=== PATIENT | male | born 1965 | race Caucasian/White ===

== ENCOUNTER 2016-10-11 20:00 | Emergency (ER) | payer OTHER ==
--- NOTE | 2016-10-11 21:54 | ER Document Report ---
ED Medical Screen (RME) - General Chief Complaint: Urinary Problem Stated Complaint: POSSIBLE KIDNEY INFECTION Time Seen by Provider: 10/11/16 21:52 Mode of Arrival: Ambulatory Information source: Patient Notes: 51-year-old male presents to ED for follow-up from [place]. He states he got a message on his telephone that he was to come [facility] to be seen but he did not get the message until he got the third message was informed to come to the ED to be evaluated for a kidney infection. He states he has no symptoms no pain no discomfort no blood in his urine but he came to the emergency room because the mother states that for him to come directly to the emergency room to be checked out. Patient is on Pradaxa. I have greeted and performed a rapid initial assessment of this patient. A comprehensive ED assessment and evaluation of the patient, analysis of test results and completion of medical decision making process will be conducted by an additional ED providers. TRAVEL OUTSIDE OF THE [place] IN LAST 30 DAYS: No - Related Data Allergies/Adverse Reactions: Penicillins Allergy (Verified 06/20/15 11:26) Past Medical History - Past Medical History Cardiac Medical History: Reports: Hx Atrial Fibrillation, Hx Congestive Heart Failure, Hx Hypercholesterolemia, Hx Hypertension Renal/ Medical History: Denies: Hx Peritoneal Dialysis Past Surgical History: Reports: Hx Cardiac Surgery - Immunizations Hx Diphtheria, Pertussis, Tetanus Vaccination: Yes Physical Exam - Vital signs Vitals: Temp Pulse Resp BP Pulse Ox 98.1 F 128 H 18 125/92 H 98 10/11/16 20:09 10/11/16 20:09 10/11/16 20:09 10/11/16 20:09 10/11/16 20:09 Course - Vital Signs Vital signs: Temp Pulse Resp BP Pulse Ox 98.1 F 128 H 18 125/92 H 98 10/11/16 20:09 10/11/16 20:09 10/11/16 20:09 10/11/16 20:09 10/11/16 20:09
[2016-10-11 22:11] LABS: APPEARANCE,URINE CLEAR; BILIRUBIN,URINE NEGATIVE (NEGATIVE); GLUCOSE, URINE NEGATIVE (NEGATIVE); KETONES,URINE NEGATIVE (NEGATIVE); LEUKOCYTE ESTERASE,URINE NEGATIVE (NEGATIVE); NITRITE,URINE NEGATIVE (NEGATIVE); PROTEIN,URINE NEGATIVE (NEGATIVE); URINE SPECIFIC GRAVITY 1.003; UROBILINOGEN,URINE NEGATIVE mg/dL (<2.0)
[2016-10-11 22:51] LABS: ABSOLUTE BASOPHILS # (AUTO) 0.1 10^3/uL (0.0-0.2); ABSOLUTE EOSINOPHILS # (AUTO) 0.4 10^3/uL (0.0-0.6); ABSOLUTE LYMPHOCYTES (AUTO) 2.2 10^3/uL (0.5-4.7); ABSOLUTE MONOCYTES (AUTO) 1.1 10^3/uL (0.1-1.4); EOSINOPHILS % (AUTO) 4.1 % (0-6); HEMATOCRIT 48.4 % (37.9-51.0); HEMOGLOBIN 15.8 g/dL (13.5-17.0); LYMPHOCYTES % (AUTO) 22.6 % (13-45); MEAN CORPUSCULAR HEMOGLOBIN 31.6 pg (27.0-33.4); MEAN CORPUSCULAR HGB CONC 32.6 g/dL (32.0-36.0); MEAN CORPUSCULAR VOLUME 97 fl (80-97); MONOCYTES % (AUTO) 10.8 % (3-13); RED BLOOD COUNT 4.99 10^6/uL (4.35-5.55); SEGMENTED NEUTROPHILS % (AUTO) 61.5 % (42-78); WHITE BLOOD COUNT 9.7 10^3/uL (4.0-10.5)
[2016-10-11 23:10] LABS: ALANINE AMINOTRANSFERASE 38 U/L (21-72); ALBUMIN 4.9 g/dL (3.5-5.0); ALKALINE PHOSPHATASE 71 U/L (38-126); ANION GAP 15 (5-19); ASPARTATE AMINO TRANSFERASE 25 U/L (17-59); BILIRUBIN,DIRECT 0.4 mg/dL (0.0-0.4); BILIRUBIN,TOTAL 0.7 mg/dL (0.2-1.3); BLOOD UREA NITROGEN 41 mg/dL (7-20); CALCIUM 9.8 mg/dL (8.4-10.2); CARBON DIOXIDE 23 mmol/L (22-30); CHLORIDE 103 mmol/L (98-107); CREATININE RESULT 1.26 mg/dL (0.52-1.25); GLUCOSE 60 mg/dL (75-110); POTASSIUM 5.3 mmol/L (3.6-5.0); SODIUM 141.4 mmol/L (137-145); TOTAL PROTEIN 8.1 g/dL (6.3-8.2)
[2016-10-12 01:46] VITALS: BP 137/98
--- NOTE | 2016-10-12 01:52 | ER Document Report ---
ED General - General Chief Complaint: Urinary Problem Stated Complaint: POSSIBLE KIDNEY INFECTION Time Seen by Provider: 10/11/16 21:52 Mode of Arrival: Ambulatory Information source: Patient Notes: 51-year-old male presents to ED [facility]. He states he got messages on his phone to come to the [place] yesterday but he did not get a mental doctor message with said that he was going to nearest ED to be evaluated for kidney infection. He denies any pain any shortness of breath any discomfort any blood in his urine or stools that he came to the emergency room because the doctor said that he was supposed to. Patient has a history of atrial fib CHF high cholesterol and high blood pressure and is on metoprolol tartrate and lisinopril and Pradaxa. TRAVEL OUTSIDE OF THE [place] IN LAST 30 DAYS: No - HPI Onset: This evening Quality of pain: No pain Severity: None Pain Level: Denies Associated symptoms: None Exacerbated by: Denies Relieved by: Denies Similar symptoms previously: No Recently seen / treated by doctor: Yes - Related Data Allergies/Adverse Reactions: Penicillins Allergy (Verified 06/20/15 11:26) Past Medical History - General Information source: Patient - Social History Smoking Status: Current Every Day Smoker Cigarette use (# per day): Yes - Half a pack a day Chew tobacco use (# tins/day): No Smoking Education Provided: Yes - Less than 1 minute Frequency of alcohol use: Heavy - 1-2 beer a day Drug Abuse: None Occupation: [employer] Lives with: Spouse/Significant other Family History: CAD, Hyperlipidemia, Hypertension, Thyroid Disfunction Patient has suicidal ideation: No Patient has homicidal ideation: No - Past Medical History Cardiac Medical History: Reports: Hx Atrial Fibrillation, Hx Congestive Heart Failure, Hx Hypercholesterolemia, Hx Hypertension Pulmonary Medical History: Reports: None EENT Medical History: Reports: None Neurological Medical History: Reports: None Endocrine Medical History: Reports: None Renal/ Medical History: Reports: None Malignancy Medical History: Reports None GI Medical History: Reports: None Musculoskeltal Medical History: Reports None Skin Medical History: Reports None Psychiatric Medical History: Reports: None Traumatic Medical History: Reports: None Infectious Medical History: Reports: None Past Surgical History: Reports: Hx Cardiac Surgery - Immunizations Immunizations up to date: Yes Hx Diphtheria, Pertussis, Tetanus Vaccination: Yes Review of Systems - Review of Systems Constitutional: No symptoms reported EENT: No symptoms reported Cardiovascular: No symptoms reported Respiratory: No symptoms reported Gastrointestinal: No symptoms reported Genitourinary: No symptoms reported Male Genitourinary: No symptoms reported Musculoskeletal: No symptoms reported Skin: No symptoms reported Hematologic/Lymphatic: No symptoms reported Neurological/Psychological: No symptoms reported Physical Exam - Vital signs Vitals: Temp Pulse Resp BP Pulse Ox 98.1 F 128 H 18 125/92 H 98 10/11/16 20:09 10/11/16 20:09 10/11/16 20:09 10/11/16 20:09 10/11/16 20:09 Interpretation: Normal, Hypertensive - has not taken his metoprolol or diltiazem this afternoon, Tachycardic - 135 but he has not taken his metoprolol dental exam or Pradaxa this afternoon - General General appearance: Appears well, Alert - HEENT Head: Normocephalic, Atraumatic Eyes: Normal Pupils: PERRL - Respiratory Respiratory status: No respiratory distress Chest status: Nontender Breath sounds: Normal Chest palpation: Normal - Cardiovascular Rhythm: Regular Heart sounds: Normal auscultation Murmur: No - Abdominal Inspection: Normal Distension: No distension Bowel sounds: Normal Tenderness: Nontender Organomegaly: No organomegaly - Back Back: Normal, Nontender - Extremities General upper extremity: Normal inspection, Nontender, Normal color, Normal ROM , Normal temperature General lower extremity: Normal inspection, Nontender, Normal color, Normal ROM , Normal temperature, Normal weight bearing. No: Joyce's sign - Neurological Neuro grossly intact: Yes Cognition: Normal Orientation: AAOx4 Riz[place]ana Coma Scale Eye Opening: Spontaneous Gilbert Coma Scale Verbal: Oriented Gilbert Coma Scale Motor: Obeys Commands Gilbert Coma Scale Total: 15 Speech: Normal Motor strength normal: LUE, RUE, LLE, RLE Sensory: Normal - Psychological Associated symptoms: Normal affect, Normal mood - Skin Skin Temperature: Warm Skin Moisture: Dry Skin Color: Normal Course - Re-evaluation Re-evalutation: 10/12/16 01:50 Patient has elevated BUN and creatinine as well as blood pressure and pulse he has not taken his metoprolol develop or Pradaxa this afternoon. He states he always has elevated pulse is much is 138-140 if he does not take his medications on time and he did not take his diltiazem at noon, 6 PM, or at midnight he is scheduled to take that every [address] De La Cruz for the assessment and the lab work and vital signs. He stated his longest the pulse was regular which it is and he has had no bleeding from his urine or his stool and he can be discharged and follow-up with [facility] doctor in the morning. A copy of the dresser given to him to follow-up with his [facility] doctor. - Vital Signs Vital signs: Temp Pulse Resp BP Pulse Ox 98.1 F 135 H 18 137/98 H 98 10/11/16 20:09 10/12/16 01:40 10/12/16 01:40 10/12/16 01:40 10/12/16 01:40 - Laboratory Result Diagrams: 10/11/16 22:00 10/11/16 22:00 Laboratory results interpreted by me: 10/11/16 22:00 Potassium 5.3 H BUN 41 H Creatinine 1.26 H Glucose 60 L Discharge - Discharge Clinical Impression: Renal insufficiency, Tachycardia HTN (hypertension) Qualifiers: Hypertension type: unspecified Qualified Code(s): I10 - Essential (primary) hypertension Condition: Stable Disposition: HOME, SELF-CARE Additional Instructions: HIGH BLOOD PRESSURE REQUIRING TREATMENT: Your blood pressure is high. This is called "hypertension." Today's reading was __137/92 (normal is less than 140/90). Your history and exam suggest that this is not a temporary problem. You need treatment of your blood pressure. If left untreated, high blood pressure greatly increases your risk of heart attack and stroke. Please don't ignore this problem. If you have blood pressure medicine but aren't using it regularly, start taking it again. Some simple things you can do to help are: Get some aerobic exercise for at least 20 minutes on a daily basis. (See your doctor before beginning any new exercise program.) Eat a low-fat diet. Lose excess weight. Avoid salty foods and avoid adding salt to any of the foods you eat. Avoid diet pills, decongestants, "energizing" herbs, and other medicines that elevate blood pressure. There are many different medicines that treat blood pressure. If your medication causes unpleasant side effects, call your doctor. There are others you can try. Treating hypertension is a life-long investment in your health. You took your medication before leaving please do not take and again the night You have renal insufficiency with a BUN and creatinine is elevated this needs to be followed up with the [place] tomorrow. Your blood pressure and pulse were also elevated as you did not take any medicine please take these as ordered. Please be sure to drink plenty of fluids and follow-up with the doctor tomorrow. FOLLOW-UP CARE: If you have been referred to a physician for follow-up care, call the physician s office for an appointment as you were instructed or within the next two days. If you experience worsening or a significant change in your symptoms, notify the physician immediately or return to the Emergency Department at any time for re-evaluation. Forms: Elevated Blood Pressure, Smoking Cessation Education, Return to Work
== END 2016-10-12 02:02 | disposition home or self-care (01) ==
LOC: ER 20:00
DX: N28.9 Disorder of kidney and ureter, unspecified (principal); R00.0 Tachycardia, unspecified; I11.0 Hypertensive heart disease with heart failure; F17.210 Nicotine dependence, cigarettes, uncomplicated; I48.91 Unspecified atrial fibrillation; I50.9 Heart failure, unspecified; E78.00 Pure hypercholesterolemia, unspecified; Z88.0 Allergy status to penicillin
CPT/HCPCS: 36415; 80053; 81001; 85025; 99284

== ENCOUNTER 2016-11-08 15:11 | Inpatient (IN) | payer OTHER ==
--- NOTE | 2016-11-08 15:50 | ER Document Report ---
ED Medical Screen (RME) - General Chief Complaint: Chest Pain Stated Complaint: CHEST PAIN Time Seen by Provider: 11/08/16 15:34 Notes: 51-year-old male patient with history of atrial fibrillation, congestive heart failure, hypertension, hyperlipidemia. Former alcoholic issues, reportedly drinks only a six pack a week total now. He does smoke one half pack per day. He reports he had an episode of dyspnea on exertion with a little chest pain at work on Tuesday and again today. He reports this morning he took his dog for walk and developed shortness of breath with tachycardia. 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 He went home to rest and while there his witnessed 2 seizures. She does not know what his pulse rate was when the seizures occurred. He states he did have some seizures many years ago that were not alcohol related. He takes his Cardizem every 6 hours, and metoprolol every 12 hours. He has not missed any doses. I have greeted and performed a rapid initial assessment of this patient. A comprehensive ED assessment and evaluation of the patient, analysis of test results and completion of the medical decision making process will be conducted by additional ED providers. TRAVEL OUTSIDE OF THE [place] IN LAST 30 DAYS: No - Related Data Allergies/Adverse Reactions: Penicillins Allergy (Verified 06/20/15 11:26) Past Medical History - Social History Chew tobacco use (# tins/day): No - 1/2 ppd Frequency of alcohol use: Social Drug Abuse: None - Past Medical History Cardiac Medical History: Reports: Hx Atrial Fibrillation, Hx Congestive Heart Failure, Hx Hypercholesterolemia, Hx Hypertension Renal/ Medical History: Denies: Hx Peritoneal Dialysis Past Surgical History: Reports: Hx Cardiac Surgery - Immunizations Immunizations up to date: Yes Hx Diphtheria, Pertussis, Tetanus Vaccination: Yes Physical Exam - Vital signs Vitals: Temp Pulse Resp BP Pulse Ox 97.5 F 135 H 24 H 147/101 H 99 11/08/16 15:25 11/08/16 15:11/08/16 15:11/08/16 15:11/08/16 15:25 Course - Vital Signs Vital signs: Temp Pulse Resp BP Pulse Ox 97.5 F 135 H 24 H 147/101 H 99 11/08/16 15:25 11/08/16 15:25 11/08/16 15:25 11/08/16 15:25 11/08/16 15:25
[2016-11-08 16:32] LABS: ABSOLUTE BASOPHILS # (AUTO) 0.1 10^3/uL (0.0-0.2); ABSOLUTE EOSINOPHILS # (AUTO) 0.1 10^3/uL (0.0-0.6); ABSOLUTE LYMPHOCYTES (AUTO) 1.5 10^3/uL (0.5-4.7); ABSOLUTE MONOCYTES (AUTO) 1.5 10^3/uL (0.1-1.4); ABSOLUTE NEUT (AUTO) 12.8 10^3/uL (1.7-8.2); BASOPHILS % (AUTO) 0.4 % (0-2); EOSINOPHILS % (AUTO) 0.7 % (0-6); HEMATOCRIT 47.2 % (37.9-51.0); HEMOGLOBIN 15.9 g/dL (13.5-17.0); HGB HCT DIFFERENCE 0.5; LYMPHOCYTES % (AUTO) 9.3 % (13-45); MEAN CORPUSCULAR HEMOGLOBIN 31.9 pg (27.0-33.4); MEAN CORPUSCULAR HGB CONC 33.7 g/dL (32.0-36.0); MEAN CORPUSCULAR VOLUME 95 fl (80-97); MONOCYTES % (AUTO) 9.2 % (3-13); RED CELL DISTRIBUTION WIDTH 13.6 % (11.5-14.0); SEGMENTED NEUTROPHILS % (AUTO) 80.4 % (42-78); WHITE BLOOD COUNT 15.9 10^3/uL (4.0-10.5)
--- NOTE | 2016-11-08 16:36 | RADIOLOGY REPORT (SQ) ---
EXAM DESCRIPTION: CHEST SINGLE VIEW COMPLETED DATE/TIME: 11/08/2016 4:22 pm REASON FOR STUDY: JERONIMO, tachycardia COMPARISON: 05/08/2011 EXAM PARAMETERS: NUMBER OF VIEWS: One view. TECHNIQUE: Single frontal radiographic view of the chest acquired. RADIATION DOSE: NA LIMITATIONS: None. FINDINGS: LUNGS AND PLEURA: Minimal scarring in the lung bases. No effusions. MEDIASTINUM AND HILAR STRUCTURES: No masses. Contour normal. HEART AND VASCULAR STRUCTURES: Heart normal in size. Normal vasculature. BONES: No acute findings. HARDWARE: None in the chest. OTHER: No other significant finding. IMPRESSION: NO ACUTE RADIOGRAPHIC FINDING IN THE CHEST. TECHNICAL DOCUMENTATION: JOB ID: [id number]
[2016-11-08 17:11] LABS: TROPONIN I 0.041 ng/mL
--- NOTE | 2016-11-08 17:12 | ER Document Report ---
ED General - General Chief Complaint: Chest Pain Stated Complaint: CHEST PAIN Time Seen by Provider: 11/08/16 15:34 Notes: 62-year-old male with a history of "an episode of heart failure" and alcoholism as well as hypertension presents to the ED after several symptoms. Yesterday he was walking his dogs and he felt extremely short of breath, got very sweaty, this lasted about 15 minutes until he relapsed. Yesterday he had a normal day after that. This morning he went to work and had the same dyspnea on exertion sweating and an episode of exertional chest pain which then resolved. He had one further episode of chest pain, sharp and left-sided lasting about 5 minutes when he was in the ED. He does not murmur having a stress test. He states that he is drinking less than one beer a day. Apparently also this morning he had "a seizure" which he does not remember but felt dizzy beforehand. His girlfriend initially told the story but she is not here. This amounted to 2 losses of consciousness with possible seizure-like activity. TRAVEL OUTSIDE OF THE [place] IN LAST 30 DAYS: No - Related Data Allergies/Adverse Reactions: Penicillins Allergy (Verified 06/20/15 11:26) Home Medications: Current Home Medications Dabigatran Etexilate Mesylate [Pradaxa] 1 tab PO BID 11/08/16 [History] Diltiazem HCl [Cardizem 30 mg Tablet] 1 tab PO Q6 11/08/16 [History] Past Medical History - General Information source: Patient - Social History Smoking Status: Current Every Day Smoker Chew tobacco use (# tins/day): No - 1/2 ppd Frequency of alcohol use: Social Drug Abuse: None Family History: CAD, Hyperlipidemia, Hypertension, Thyroid Disfunction - Past Medical History Cardiac Medical History: Reports: Hx Atrial Fibrillation, Hx Congestive Heart Failure, Hx Hypercholesterolemia, Hx Hypertension Renal/ Medical History: Denies: Hx Peritoneal Dialysis Past Surgical History: Reports: Hx Cardiac Surgery - Immunizations Immunizations up to date: Yes Hx Diphtheria, Pertussis, Tetanus Vaccination: Yes Review of Systems - Review of Systems Notes: REVIEW OF SYSTEMS GEN: Denies fever, chills, weight loss ENT: Denies sore throat, nasal discharge, ear pain EYES: Denies blurry vision, eye pain, discharge CV: Chest pain RESP: There is no dyspnea GI: Denies abdominal pain, nausea, vomiting, diarrhea MSK: Denies joint pain/swelling, edema, SKIN: Denies rash, skin lesions LYMPH: Denies swollen glands/lymph nodes NEURO: Muscle seizure versus loss of consciousness PSYCH: Denies depression, suicidal or homicidal ideation PHYSICAL EXAMINATION General: No acute distress, well-nourished Head: Atraumatic, normocephalic ENT: Mouth normal, oropharynx moist, no exudates or tonsillar enlargement Eyes: Conjunctiva normal, pupils equal, lids normal Neck: No JVD, supple, no guarding CVS: Normal rate, regular rhythm, no murmurs Resp: No resp distress, equal and normal breath sounds bilaterally GI: Nondistended, soft, no tenderness to palpation, no rebound or guarding Ext: No deformities, no edema, normal range of motion in upper and lower ext chronic appearing discoloration of left lower externally without edema. Back: No CVA or midline TTP Skin: No rash, warm Lymphatic: No lymphadeopathy noted Neuro: Awake, alert. Face symmetric. GCS 15. 0 to minimal tongue tremor. No other tremor. No pronator drift. Physical Exam - Vital signs Vitals: Temp Pulse Resp BP Pulse Ox 97.5 F 135 H 24 H 147/101 H 99 11/08/16 15:25 11/08/16 15:25 11/08/16 15:25 11/08/16 15:25 11/08/16 15:25 Course - Re-evaluation Re-evalutation: 11/08/16 17:11 51-year-old male with a cardiac history presents after exertional dyspnea and sweating twice in 24 hours accompanied by an episode of exertional chest pain as well as 2 losses of consciousness which are described as seizure, but do not exhibit clear seizure semiology. Differential includes heart failure anginal equivalent, less likely pneumothorax or PE given the story, as well as seizure versus syncope. Patient will receive a full lab panel. He is tachycardic in the ED although he has no ischemic changes on his EKG. 11/08/16 18:57 Labs are back. Mild elevation in white count. Patient has an acute kidney injury with elevated creatinine, elevated BUN and associated anion gap likely due to uremia. He may have had a seizure but it sounds more like syncope with shaking. I talked with his girlfriend. His pressure is in the high 90s when he looks very well and I am afraid of volume overloaded him to given his clinical stability I will withhold fluids and admitted to the hospitalist. 11/08/16 19:16 Call for admission at [address] Booth. No answer. Will retry 11/08/16 19:[address] Booth at 735. Accepted the admission. Agrees with plan as outlined above. Previous to that, I spoke with Dr. Garcia from renal who will consult but agrees with me that dialysis is not necessary at this time. He thinks based on the patient's diagnostic data and vital signs that he is probably dry and can tolerate fluids. I ordered 1 L of saline. - Vital Signs Vital signs: Temp Pulse Resp BP Pulse Ox 97.5 F 135 H 24 H 147/101 H 99 11/08/16 15:25 11/08/16 15:25 11/08/16 15:25 11/08/16 15:25 11/08/16 15:25 - Laboratory Result Diagrams: 11/08/16 16:13 11/08/16 16:13 Laboratory results interpreted by me: 11/08/16 11/08/16 11/08/16 16:13 16:13 16:13 WBC 15.9 H Seg Neutrophils % 80.4 H Lymphocytes % 9.3 L Absolute Neutrophils 12.8 H Absolute Monocytes 1.5 H Sodium 126.8 L Chloride 79 L Anion Gap 25 H BUN 84 H Creatinine 6.50 H Est GFR ( Amer) 11 L Est GFR (Non-Af Amer) 9 L Total Bilirubin 2.9 H Direct Bilirubin 1.2 H NT-Pro-B Natriuret Pep 961 H Total Protein 8.9 H Albumin 5.2 H - EKG Interpretation by Me EKG shows normal: Sinus rhythm Rate: Tachycardia Rhythm: NSR When compared to previous EKG there are: No significant change Critical Care Note - Critical Care Note Total time excluding time spent on procedures (mins): 32 Comments: The above patient is critically ill. Not including procedures, but including direct re-evaluations, speaking with patient and/or consultants, interpreting results, and documenting, I spent the total amount of minute listed listed above on critical care time Discharge - Discharge Clinical Impression: Acute renal failure Qualifiers: Acute renal failure type: unspecified Qualified Code(s): N17.9 - Acute kidney failure, unspecified Disposition: ADMITTED INPATIENT Admitting Provider: Hospitalist Unit Admitted: IMCU Referrals: DARRICK NEWMAN MD [Primary Care Provider] - Follow up as needed
[2016-11-08 17:30] LABS: ALANINE AMINOTRANSFERASE 42 U/L (21-72); ALBUMIN 5.2 g/dL (3.5-5.0); ALKALINE PHOSPHATASE 75 U/L (38-126); ASPARTATE AMINO TRANSFERASE 44 U/L (17-59); BILIRUBIN,DIRECT 1.2 mg/dL (0.0-0.4); BILIRUBIN,TOTAL 2.9 mg/dL (0.2-1.3); BLOOD UREA NITROGEN 84 mg/dL (7-20); CALCIUM 9.9 mg/dL (8.4-10.2); CREATINE KINASE 169 U/L (55-170); GLUCOSE 98 mg/dL (75-110); TOTAL PROTEIN 8.9 g/dL (6.3-8.2)
[2016-11-08 17:38] LABS: CARBON DIOXIDE 23 mmol/L (22-30); CHLORIDE 79 mmol/L (98-107); POTASSIUM 3.9 mmol/L (3.6-5.0); SODIUM 126.8 mmol/L (137-145)
[2016-11-08 17:45] LABS: ANION GAP 25 (5-19)
[2016-11-08] MEDS ORDERED: NORMAL SALINE 1000 ML 1,000 ML IV ONE ×2 (19:29→20:53)
[2016-11-08] MEDS ORDERED: PROMETHAZINE HCL 25 MG TABLET PO PRN (21:28)
[2016-11-08] MEDS ORDERED: ACETAMINOPHEN 325 MG TABLET PO PRN (21:28)
--- NOTE | 2016-11-08 21:38 | RADIOLOGY REPORT (SQ) ---
EXAM DESCRIPTION: CT HEAD WITHOUT COMPLETED DATE/TIME: 11/08/2016 9:23 pm REASON FOR STUDY: ?? sz COMPARISON: None. TECHNIQUE: Axial images acquired through the brain without intravenous contrast. Images reviewed wi th bone, brain and subdural windows. Images stored on PACS. All CT scanners at this facility use dose modulation, iterative reconstruction, and/or weight based d osing when appropriate to reduce radiation dose to as low as reasonably achievable (ALARA). [facility]: Dose Right [facility]: CareDose [facility]: Dose Right [facility]: Teradose 4D [facility]: Smart [employer] RADIATION DOSE: Up-to-date CT equipment and radiation dose reduction techniques were employed. CTDIv ol: 64.6 mGy. DLP: 1421 mGy-cm. mGy. LIMITATIONS: None. FINDINGS: VENTRICLES: Normal size and contour. CEREBRUM: No masses. No hemorrhage. No midline shift. Normal murphy/white matter differentiation. N o evidence for acute infarction. CEREBELLUM: No masses. No hemorrhage. No alteration of density. No evidence for acute infarction. EXTRAAXIAL SPACES: No fluid collections. No masses. ORBITS AND GLOBE: No intra- or extraconal masses. Normal contour of globe without masses. CALVARIUM: No fracture. PARANASAL SINUSES: Mucosal thickening is identified in the maxillary antra. SOFT TISSUES: No mass or hematoma. OTHER: No other significant finding. IMPRESSION: No significant intracranial abnormalities were identified. Other findings as noted abov e TECHNICAL DOCUMENTATION: JOB ID: [id number] Quality ID # [id number]: Final reports with documentation of one or more dose reduction techniques (e.g., Au tomated exposure control, adjustment of the mA and/or kV according to patient size, use of iterative reconstruction technique) 2010 [employer]- All Rights Reserved
--- NOTE | 2016-11-08 21:42 | RADIOLOGY REPORT (SQ) ---
EXAM DESCRIPTION: NM LUNG VENT/PERF SCAN COMPLETED DATE/TIME: 11/08/2016 9:31 pm REASON FOR STUDY: shortness of breath COMPARISON: None. RADIONUCLIDE AND DOSE: 5.2 millicuries TC-99m MAA Intravenous 30.8 millicuries TC-99m DTPA Inhaled aerosol TECHNIQUE: Eight views of the lungs acquired post ventilation of DTPA aerosol. Eight matching views of the lungs acquired following injection of MAA. LIMITATIONS: None. FINDINGS: VENTILATION: Symmetric and homogeneous distribution of DTPA aerosol during ventilatory pha se. No significant areas of photopenia. PERFUSION: Perfusion images with normal homogenous activity and no wedge-shaped or segmental defects. No ventilation-perfusion mismatches. OTHER: No other significant finding. IMPRESSION: NORMAL VENTILATION-PERFUSION LUNG SCAN. NEGATIVE FOR PULMONARY EMBOLI. TECHNICAL DOCUMENTATION: JOB ID: [id number] [employer]- All Rights Reserved
--- NOTE | 2016-11-08 21:49 | PDOC H&P ---
History of Present Illness Admission Date/PCP: 11/08/16 19:50 DARRICK NEWMAN MD Patient complains of: Chest pain shortness of breath History of Present Illness: MAZIN ZIMMER is a 51 year old male with underlying atrial fib rillation, on Pradaxa for same, a reported history of congestive heart failure, arthritis, hypertension, distant history of seizure 1, never on antiepileptic half pack a day smoker, and alcohol use disorder in the form of a case of beer every 2 weeks combined with the fifth of whiskey every week who presents to the emergency room for evaluation of above complaints. Patient has been discussed with emergency room physician who evaluated the patient. Yesterday, he was walking his dogs, he became extremely short of breath and diaphoretic. Lasted about 15 minutes and resolved on its own. 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 While in the waiting room, he had a 5 minute episode of sharp left-sided chest pain that resolved on its own. Currently resting quietly, without specific complaints other than being somewhat tired. Girlfriend reportedly mentioned that patient had a "seizure" earlier today. She is currently not present. Patient does remember the episode, stating that he had "convulsions." No fecal or urinary incontinence. No biting of the tongue. Did state he was a bit confused for a while afterwards. No chronic genitourinary tract disease or conditions, including stones, prostatitis, or infection. Does state that his urine output has been a bit less over the last day or so, and a bit darker. He also admits to eating less solid food over the last 2 days, but drinking plenty of water. no previous OR. No history of pulmonary embolus or DVT. No recent long trip with prolonged inactivity, or unusual lower extremity swelling or tenderness. No previous stress test, although he is status post ablation for his atrial fibrillation approximately 6 years ago. Negative family history of coronary artery disease. No recent change in his medications. Compliant with same. No ankle swelling. No nausea vomiting, fever or chills, diarrhea or dysuria. Denies any chronic pulmonary disease, including asthma, COPD, emphysema, or sleep apnea. Prior to my being called, the ER physician did speak with Dr. Garcia of nephrology, who agrees to see the patient in consultation. Emergency room physician stated Dr. Garcia felt patient was probably a bit dehydrated and recommended IV fluids. Patient has been tachycardic into the 120s and 130s in the emergency room. Dictation via voice recognition software. Laboratory results are listed in [employer] and are reviewed. X-ray summary results are listed below, with full report(s) reviewed. . EKG 2 reviewed and compared to prior tracing from July 02 of last year. Social history/personal habits: Single. Has children. Cook at the local [employer] Half pack of cigarettes per day. Alcohol use as noted above. Denies illicit drug use. Allergies/adverse reactions are listed in [employer] and are reviewed. Home medications initially autopopulated into [employer] may not accurately reflect patient's true medications, dosages, and/or frequencies. Bottle review performed. REVIEW OF SYSTEMS: Constitutional: No fever or chills. Eyes: Wears glasses ENT: No swallowing problems or complaints. Denies hearing loss. Pulmonary: See history and present illness. Cardiovascular: See history and present illness. Gastrointestinal: No current complaints, including nausea or vomiting. Skin: No current complaints, including rashes. Hematologic: Denies easy bruising. Neurologic: No current complaints, including numbness or tingling. Musculoskeletal: Mild joint pain from arthritis. Psychiatric: Denies anxiety or depression. Endocrine: No current complaints, including polyuria. Genitourinary: No current complaints, including dysuria. PHYSICAL EXAMINATION: 6 feet tall. 109 kg. BMI 32.6 kg/m. Blood pressure 108/92. Pulse 129 and regular. 97% saturation on room air. Respirations are 22 and unlabored. Temperature 97.5. Slightly obese otherwise well-nourished well-developed male who appears a bit older than his stated age. Pleasant awake alert and cooperative. No obvious distress, other than somewhat anxious. Of note, son initially was present when I walked into patient's emergency room suite. However, patient did ask that son step outside before I began asking questions. Son cooperated. Skin is warm and dry. No grossly obvious evidence of rash in areas of skin examined. No subcutaneous nodules palpated. ENT: Hearing grossly normal to normal conversation. Tongue midline on protrusion pink and moist. Eyes: No scleral icterus. Pupils equal and reactive to light at 4 mm. [place] conjunctivae. Neck is supple and nontender to gentle active range of motion and palpation. Midline trachea. No palpable thyroid nodule mass enlargement or tenderness. Lymphatic: No palpable cervical or clavicular nodes. Neck and lymphatic exams limited by patient body habitus. Psychiatric: Reasonable insight into acute and chronic medical issues. Oriented to time location and why here. Lungs: Auscultation reveals clear and equal breath sounds bilaterally, other than perhaps very faint barely detectable questionable rales in the left base. No use of accessory respiratory muscles. Cardiovascular: Heart regular rate and rhythm, without gallop murmur or rub. No carotid or abdominal aortic bruits. No ankle or pedal edema. Palpable dorsalis pedis pulses. Abdomen:soft slightly distended nontender with positive bowel sounds. Unable to adequately evaluate abdomen for masses or organomegaly due to distention. Compression of neither the upper abdomen nor sternum reproduces his previously noted chest discomfort. Extremities: Feet are warm and dry. No calf tenderness to compression. No grossly obvious visual evidence of calf swelling. Gentle manipulation of lower extremities fails to reveal any obvious evidence of injury or instability to knees hips or ankles. Neurologic: Moves upper extremities grossly normally. Patellar reflexes absent. Absent Babinski. Light touch is intact at feet. Dorsiflexion and plantarflexion of feet 5 / 5 and symmetric. Past Medical History Cardiac Medical History: Reports: Atrial Fibrillation, Congestive Heart Failure , Hyperlipidema, Hypertension Denies: DVT, Myocardial Infarction, Pulmonary Embolism Pulmonary Medical History: Denies: Asthma, Chronic Obstructive Pulmonary Disease (COPD), Sleep Apnea EENT Medical History: Reports: Eyes - Glasses Denies: Ears, Throat Neurological Medical History: Reports: Seizures - Questionable seizure approximately 15 years ago; never on antiepileptic. Denies: Hemorrhagic CVA, Ischemic CVA Endocrine Medical History: Denies: Diabetes Mellitus Type 1, Diabetes Mellitus Type 2, Hyperthyroidism, Hypothyroidism Renal/ Medical History: Reports: None GI Medical History: Denies: Cirrhosis, Gastroesophageal Reflux Disease, Hepatitis, Peptic Ulcer Disease Musculoskeltal Medical History: Reports: Arthritis Skin Medical History: Reports: None Psychiatric Medical History: Reports: Alcohol Dependency, Tobacco Dependency Denies: Depression, General Anxiety Disorder, Substance Abuse Hematology: Reports: None Infectious Medical History: Denies: Hepatitis B, Hepatitis C Past Surgical History Past Surgical History: Reports: Tonsillectomy, Other - Ablation for atrial fibrillation. Social History Information Source: Patient, Emergency Med Personnel, [facility] Records Smoking Status: Current Every Day Smoker Frequency of Alcohol Use: Heavy Drugs: None - Advance Directive Resuscitation Status: Full Code Surrogate healthcare decision maker:: Abdoulaye Grant Family History Family History: CAD, Hyperlipidemia, Hypertension, Thyroid Disfunction Parental Family History Reviewed: Yes - Both parents alive with heart trouble. Children Family History Reviewed: Yes - Healthy Sibling(s) Family History Reviewed.: Yes - Healthy Medication/Allergy Home Medications: RX: Dabigatran Etexilate Mesylate [Pradaxa 150 mg Capsule] 150 mg PO Q12 RX: Metoprolol Tartrate [Lopressor 25 mg Tablet] 12.5 mg PO Q12 11/08/16 RX: Acetaminophen [Tylenol 325 mg Tablet] 650 mg PO Q8HP PRN tablet 11/11/16 Allergies/Adverse Reactions: Penicillins Allergy (Verified 06/20/15 11:26) Physical Exam Vital Signs: Temp Pulse Resp BP Pulse Ox 97.5 F 135 H 24 H 147/101 H 99 11/08/16 15:25 11/08/16 15:25 11/08/16 15:25 11/08/16 15:25 11/08/16 15:25 Results Impressions: Chest X-Ray 11/08/16 15:44 IMPRESSION: NO ACUTE RADIOGRAPHIC FINDING IN THE CHEST. Assessment & Plan - Diagnosis (1) Acute renal failure Qualifiers: Acute renal failure type: unspecified Qualified Code(s): N17.9 - Acute kidney failure, unspecified Is this a current diagnosis for this admission?: Yes Plan: Uncertain etiology at this point in time. Renal ultrasound. Nephrology consult. IV fluid. Serial chemistry. I have strongly encouraged patient not to get out of bed without notifying staff , to avoid a fall with injury. Knee high SCDs for DVT prophylaxis, along with subcutaneous heparin. Impression and plans were discussed with patient, who concurs. Time spent in evaluation and management of patient: 80 minutes. (2) Chest pain Qualifiers: Chest pain type: unspecified Qualified Code(s): R07.9 - Chest pain, unspecified Is this a current diagnosis for this admission?: Yes Plan: Patient understands to notify staff should chest pain recur. Serial troponin . Repeat EKG. lipid panel. (3) Dyspnea Qualifiers: Dyspnea type: dyspnea on exertion Qualified Code(s): R06.09 - Other forms of dyspnea Is this a current diagnosis for this admission?: Yes Plan: V/Q scan to be performed. (4) Elevated LFTs Is this a current diagnosis for this admission?: Yes Plan: Possibly due to alcohol use. Follow-up chemistry. (5) Elevated troponin Is this a current diagnosis for this admission?: Yes Plan: No outward evidence of acute coronary syndrome at this point in time. As above under "chest pain." (6) Seizure Is this a current diagnosis for this admission?: Yes Plan: Suspected. CT scan of brain without contrast. Seizure precautions. (7) Alcohol use disorder Is this a current diagnosis for this admission?: Yes Plan: Daily thiamine, multivitamin, and folic acid. Observe closely for evidence of alcohol withdrawal. None at present. (8) Anticoagulated Is this a current diagnosis for this admission?: Yes Plan: Resume home medications as appropriate once these have been determined and reviewed. Adjusted for renal status. (9) Atrial fibrillation Qualifiers: Atrial fibrillation type: chronic Qualified Code(s): I48.2 - Chronic atrial fibrillation Is this a current diagnosis for this admission?: Yes Plan: Resume home medications as appropriate once these have been determined and reviewed. (10) HTN (hypertension) Qualifiers: Hypertension type: essential hypertension Qualified Code(s): I10 - Essential (primary) hypertension Is this a current diagnosis for this admission?: Yes (11) Tobacco dependency Is this a current diagnosis for this admission?: Yes Plan: Resume home medications as appropriate once these have been determined and reviewed. - Time Time Spent: Greater than 70 Minutes Medications reviewed and adjusted accordingly: Yes Anticipated discharge: Home Within: Other - Inpatient Certification Based on my medical assessment, after consideration of the patient's comorbidities, presenting symptoms, or acuity I expect that the services needed warrant INPATIENT care.: Yes I certify that my determination is in accordance with my understanding of Medicare's requirements for reasonable and necessary INPATIENT services [42 CFR 412.3e].: Yes Medical Necessity: Need Close Monitoring Due to Risk of Patient Decompensation, Need For IV Fluids, Risk of Diagnosis Which Will Require Inpatient Eval/Care/ Monitoring Post Hospital Care: D/C or Transfer Summary
[2016-11-08] MEDS ORDERED: DABIGATRAN ETEXILATE 150 MG CAPSULE PO SCH (22:00)
[2016-11-08] MEDS ORDERED: HEPARIN SOD (PORCINE) 5,000 UNIT/ML 1 ML SYRINGE SUBCUT SCH (22:00)
[2016-11-08] MEDS ORDERED: THIAMINE HCL 100 MG TABLET PO ONE (22:00)
[2016-11-08 22:56] LABS: PROTHROMBIN TIME 21.7 SEC (11.4-15.4)
[2016-11-08 22:58] LABS: PARTIAL THROMBOPLASTIN TIME 64.6 SEC (23.5-35.8)
[2016-11-08] MEDS: DABIGATRAN ETEXILATE 75 MG CAPSULE PO SCH (23:25)
[2016-11-08] MEDS: METOPROLOL TARTRATE 25 MG TABLET PO SCH (23:26)
[2016-11-08 23:36] LABS: MAGNESIUM 1.6 mg/dL (1.6-2.3); PHOSPHORUS 6.7 mg/dL (2.5-4.5)
[2016-11-08 23:37] LABS: ALCOHOL < 10 mg/dL (NONE DETECTED); BLOOD UREA NITROGEN 87 mg/dL (7-20); CALCIUM 8.9 mg/dL (8.4-10.2); CARBON DIOXIDE 23 mmol/L (22-30); CHLORIDE 86 mmol/L (98-107); GLUCOSE 116 mg/dL (75-110)
[2016-11-08 23:48] LABS: POTASSIUM 3.8 mmol/L (3.6-5.0); SODIUM 131.8 mmol/L (137-145)
[2016-11-08 23:49] LABS: ANION GAP 23 (5-19)
[2016-11-09] MEDS: DILTIAZEM HCL 30 MG TABLET PO SCH ×5 (00:31→23:10)
[2016-11-09] MEDS: NORMAL SALINE 1000 ML 1,000 ML IV PRN ×3 (01:04→14:21)
[2016-11-09 02:58] LABS: APPEARANCE,URINE CLEAR; GLUCOSE, URINE 50 mg/dL (NEGATIVE)
[2016-11-09 02:59] LABS: BILIRUBIN,URINE NEGATIVE (NEGATIVE); KETONES,URINE NEGATIVE (NEGATIVE); URINE BARBITURATES SCREEN NEGATIVE; URINE METHADONE SCREEN NEGATIVE; URINE OPIATES LOW NEGATIVE; URINE PHENCYCLIDINE SCREEN NEGATIVE
[2016-11-09 03:01] LABS: URINE SPECIFIC GRAVITY 1.005
[2016-11-09 03:02] LABS: LEUKOCYTE ESTERASE,URINE TRACE (NEGATIVE); NITRITE,URINE NEGATIVE (NEGATIVE); PROTEIN,URINE NEGATIVE (NEGATIVE); UROBILINOGEN,URINE NEGATIVE mg/dL (<2.0)
--- NOTE | 2016-11-09 03:54 | RADIOLOGY REPORT (SQ) ---
EXAM DESCRIPTION: U/S RETROPERITON LTD COMPLETED DATE/TIME: 11/09/2016 2:41 am REASON FOR STUDY: arf COMPARISON: CT abdomen pelvis, 04/30/2011. TECHNIQUE: Dynamic and static grayscale images acquired of the kidneys and bladder and recorded on P ACS. Additional selected color Doppler and spectral images recorded. LIMITATIONS: None. FINDINGS: RIGHT KIDNEY: 4.1 x 3.5 x 3.9 cm ovoid exophytic lesion and/or lobulation with vascularit y of the right mid kidney. Right kidney measures 11.9 cm. LEFT KIDNEY: Normal size, 11.9 cm. Normal echogenicity. No solid or suspicious masses. No hydr onephrosis. No calcifications. BLADDER: No masses. Bilateral ureteral jet flow demonstrated. OTHER FINDINGS: No other significant finding. IMPRESSION: Possible 4.1 cm right renal mass ; further evaluation with dynamic contrast CT or MRI of the kidneys recommended. TECHNICAL DOCUMENTATION: JOB ID: [id number] [employer]- All Rights Reserved
[2016-11-09 04:58] LABS: ABSOLUTE BASOPHILS # (AUTO) 0.1 10^3/uL (0.0-0.2); ABSOLUTE EOSINOPHILS # (AUTO) 0.3 10^3/uL (0.0-0.6); ABSOLUTE LYMPHOCYTES (AUTO) 1.7 10^3/uL (0.5-4.7); ABSOLUTE MONOCYTES (AUTO) 1.1 10^3/uL (0.1-1.4); ABSOLUTE NEUT (AUTO) 6.3 10^3/uL (1.7-8.2); BASOPHILS % (AUTO) 0.8 % (0-2); EOSINOPHILS % (AUTO) 3.6 % (0-6); HEMATOCRIT 40.9 % (37.9-51.0); HEMOGLOBIN 14.2 g/dL (13.5-17.0); HGB HCT DIFFERENCE 1.7; LYMPHOCYTES % (AUTO) 17.7 % (13-45); MEAN CORPUSCULAR HEMOGLOBIN 32.7 pg (27.0-33.4); MEAN CORPUSCULAR HGB CONC 34.7 g/dL (32.0-36.0); MEAN CORPUSCULAR VOLUME 94 fl (80-97); MONOCYTES % (AUTO) 12.1 % (3-13); RED BLOOD COUNT 4.34 10^6/uL (4.35-5.55); RED CELL DISTRIBUTION WIDTH 13.7 % (11.5-14.0); SEGMENTED NEUTROPHILS % (AUTO) 65.8 % (42-78); WHITE BLOOD COUNT 9.5 10^3/uL (4.0-10.5)
[2016-11-09 05:11] LABS: BLOOD UREA NITROGEN 89 mg/dL (7-20); CARBON DIOXIDE 24 mmol/L (22-30); CHOLESTEROL 198.48 mg/dL (0-200); CREATININE RESULT 4.61 mg/dL (0.52-1.25); GLUCOSE 97 mg/dL (75-110); SODIUM 130.7 mmol/L (137-145); TRIGLYCERIDES 201 mg/dL (<150)
[2016-11-09 05:29] LABS: ANION GAP 19 (5-19); CALCIUM 8.9 mg/dL (8.4-10.2); CHLORIDE 88 mmol/L (98-107); Direct HDL 42 mg/dL (>40); POTASSIUM 4.1 mmol/L (3.6-5.0)
[2016-11-09 05:50] LABS: DIRECT LDL 147 mg/dL (<100)
[2016-11-09 05:52] LABS: VLDL CHOLESTEROL 40.2 mg/dL (10-31)
--- NOTE | 2016-11-09 07:57 | EKG REPORT ---
SEVERITY:- ABNORMAL ECG - ATRIAL FLUTTER WITH 2:1 AV BLOCK NONSPECIFIC INTRAVENTRICULAR CONDUCTION DELAY : Confirmed by: Dion Townsend MD 09-Nov-2016 07:57:01
--- NOTE | 2016-11-09 07:59 | EKG REPORT ---
SEVERITY:- BORDERLINE ECG - SINUS TACHYCARDIA BORDERLINE PROLONGED QT INTERVAL : Confirmed by: Dion Townsend MD 09-Nov-2016 07:58:27
--- NOTE | 2016-11-09 08:27 | Progress Note ---
Provider Note Provider Note: November 09, 2016: Renal ultrasound reveals suspected right renal mass. Discussed with on-call radiology. Will proceed with MRI study. Discussed with day hospitalist team.
--- NOTE | 2016-11-09 09:01 | RADIOLOGY REPORT (SQ) ---
EXAM DESCRIPTION: MRI ABDOMEN WITHOUT COMPLETED DATE/TIME: 11/09/2016 8:07 am REASON FOR STUDY: rt renal mass COMPARISON: CT abdomen pelvis 04/30/2010, abdominal ultrasound 10/30/2016 TECHNIQUE: Multiplanar multisequence imaging performed without contrast including sagittal, axial an d coronal T2, axial T1, axial gradient fat sat T1, axial in and out of phase T1 weighted images, sagi ttal STIR images. CONTRAST TYPE AND DOSE: Not given RENAL FUNCTION: Not required LIMITATIONS: None. FINDINGS: LIVER: Normal size. No masses. No dilated ducts. CBD normal. SPLEEN: Normal size. No focal lesions. PANCREAS: No masses. No adjacent inflammation or peripancreatic fluid collections. Pancreatic duct no t dilated. GALLBLADDER: No masses. No stones. No gallbladder wall thickening or pericholecystic fluid. ADRENAL GLANDS: No significant masses or asymmetry. RIGHT KIDNEY AND URETER: No solid worrisome masses. In the mid pole kidney, a 10 mm cortical cyst is present with adjacent cortical scarring. No discrete masslike MRI is identified. No right hydronep hrosis. LEFT KIDNEY AND URETER: No masses. No hydronephrosis. AORTA AND VESSELS: No aneurysm. No dissection. Renal arteries, SMA, celiac without stenosis. RETROPERITONEUM: No retroperitoneal adenopathy, hemorrhage or masses. BOWEL: Not well seen ABDOMINAL WALL AND PERITONEUM: Not well seen BONES: No gross lesions OTHER: No other significant finding. IMPRESSION: Focal cortical scarring in the posterior right mid-pole kidney with adjacent 10 mm nonhe morrhagic cysts. No discrete right renal mass identified by MRI. TECHNICAL DOCUMENTATION: JOB ID: [id number] [employer]- All Rights Reserved
[2016-11-09] MEDS ORDERED: LORAZEPAM INJ 2 MG/1 ML VIAL IV PRN (10:44)
[2016-11-09] MEDS: DABIGATRAN ETEXILATE 75 MG CAPSULE PO SCH ×2 (11:02→21:40)
[2016-11-09] MEDS: THIAMINE HCL 100 MG TABLET PO SCH (11:05)
[2016-11-09] MEDS: MULTIVITAMIN TABLET PO SCH (11:05)
[2016-11-09] MEDS: FOLIC ACID 1 MG TABLET PO SCH (11:06)
[2016-11-09] MEDS: METOPROLOL TARTRATE 25 MG TABLET PO SCH ×2 (11:06→21:40)
[2016-11-09] MEDS: DOCUSATE SODIUM 100 MG CAPSULE PO SCH ×2 (11:07→18:28)
[2016-11-09] MEDS ORDERED: DIAZEPAM 5 MG TABLET PO SCH (12:00)
--- NOTE | 2016-11-09 16:47 | PDOC PROGRESS REPORT ---
Subjective Progress Note for:: 11/09/16 Subjective:: Patient is seen on morning rounds. Just returned from MRI. MRI of his abdomen showed no renal mass, there is a 10 mm cyst on the right kidney with some cortical scarring. Awake alert and oriented 3. Any shortness of breath, chest pain or dyspnea. Denies any fever or chills. He states his grandson was staying with he and his son and not sleeping. He admits to not eating or drinking well. He has a history he reports of chronic systolic heart failure which has been stable. He does drink alcohol daily, but has never had a problem with DT's or withdrawal. He denies any other symptoms. Physical Exam Vital Signs: Temp Pulse Resp BP Pulse Ox 97.7 F 91 18 108/72 95 11/09/16 11:19 11/09/16 14:51 11/09/16 11:19 11/09/16 11:19 11/09/16 11:19 Intake & Output 11/08/16 11/09/16 11/10/16 06:59 06:59 06:59 Intake Total 1240 614 Output Total 3 Balance 1240 611 Weight 106 kg General appearance: PRESENT: no acute distress, well-developed, well-nourished Head exam: PRESENT: atraumatic, normocephalic Eye exam: PRESENT: conjunctiva pink, EOMI, PERRLA. ABSENT: scleral icterus Ear exam: PRESENT: normal external ear exam Neck exam: ABSENT: carotid bruit, JVD, lymphadenopathy, thyromegaly Respiratory exam: PRESENT: clear to auscultation irasema. ABSENT: rales, rhonchi, wheezes Cardiovascular exam: PRESENT: RRR. ABSENT: diastolic murmur, rubs, systolic murmur Pulses: PRESENT: normal dorsalis pedis pul Vascular exam: PRESENT: normal capillary refill GI/Abdominal exam: PRESENT: normal bowel sounds, soft. ABSENT: distended, guarding, mass, organolmegaly, rebound, tenderness Rectal exam: PRESENT: deferred Extremities exam: PRESENT: full ROM. ABSENT: calf tenderness, clubbing, pedal edema Musculoskeletal exam: PRESENT: ambulatory, full ROM Neurological exam: PRESENT: alert, awake, oriented to person, oriented to place , oriented to time, oriented to situation, CN II-XII grossly intact. ABSENT: motor sensory deficit Psychiatric exam: PRESENT: appropriate affect, normal mood. ABSENT: homicidal ideation, suicidal ideation Skin exam: PRESENT: dry, intact, warm. ABSENT: cyanosis, rash Results Laboratory Results: 11/09/16 04:19 11/09/16 04:19 11/08/16 11/08/16 11/08/16 22:35 22:35 22:35 WBC RBC Hgb Hct MCV MCH MCHC RDW Plt Count Seg Neutrophils % Lymphocytes % Monocytes % Eosinophils % Basophils % Absolute Neutrophils Absolute Lymphocytes Absolute Monocytes Absolute Eosinophils Absolute Basophils Sodium 131.8 L Potassium 3.8 Chloride 86 L Carbon Dioxide 23 Anion Gap 23 H BUN 87 H Creatinine 5.50 H Est GFR ( Amer) 13 L Est GFR (Non-Af Amer) 11 L Glucose 116 H Calcium 8.9 Phosphorus 6.7 H Magnesium 1.6 Triglycerides Cholesterol LDL Cholesterol Direct VLDL Cholesterol HDL Cholesterol TSH 0.56 Urine Color Urine Appearance Urine pH Ur Specific [place] Urine Protein Urine Glucose (UA) Urine Ketones Urine Blood Urine Nitrite Ur Leukocyte Esterase Urine WBC (Auto) Urine RBC (Auto) 11/09/16 11/09/16 11/09/16 00:50 04:19 04:19 WBC 9.5 RBC 4.34 L Hgb 14.2 Hct 40.9 MCV 94 MCH 32.7 MCHC 34.7 RDW 13.7 Plt Count 146 L Seg Neutrophils % 65.8 Lymphocytes % 17.7 Monocytes % 12.1 Eosinophils % 3.6 Basophils % 0.8 Absolute Neutrophils 6.3 Absolute Lymphocytes 1.7 Absolute Monocytes 1.1 Absolute Eosinophils 0.3 Absolute Basophils 0.1 Sodium 130.7 L Potassium 4.1 Chloride 88 L Carbon Dioxide 24 Anion Gap 19 BUN 89 H Creatinine 4.61 H Est GFR ( Amer) 16 L Est GFR (Non-Af Amer) 14 L Glucose 97 Calcium 8.9 Phosphorus Magnesium Triglycerides 201 H Cholesterol 198.48 LDL Cholesterol Direct 147 H VLDL Cholesterol 40.2 H HDL Cholesterol 42 TSH Urine Color YELLOW Urine Appearance CLEAR Urine pH 5.0 Ur Specific [place] 1.005 Urine Protein NEGATIVE Urine Glucose (UA) 50 H Urine Ketones NEGATIVE Urine Blood SMALL H Urine Nitrite NEGATIVE Ur Leukocyte Esterase TRACE H Urine WBC (Auto) 3 Urine RBC (Auto) 1 11/08/16 11/08/16 11/09/16 22:35 22:35 04:19 Creatine Kinase 145 Troponin I 0.028 0.026 Impressions: Head CT 11/08/16 00:00 IMPRESSION: No significant intracranial abnormalities were identified. Other findings as noted above Chest X-Ray 11/08/16 15:44 IMPRESSION: NO ACUTE RADIOGRAPHIC FINDING IN THE CHEST. Lung Scan-VQ NM 11/08/16 19:37 IMPRESSION: NORMAL VENTILATION-PERFUSION LUNG SCAN. NEGATIVE FOR PULMONARY EMBOLI. Abdomen MRI 11/09/16 00:00 IMPRESSION: Focal cortical scarring in the posterior right mid-pole kidney with adjacent 10 mm nonhemorrhagic cysts. No discrete right renal mass identified by MRI. Renal Ultrasound 11/09/16 00:00 IMPRESSION: Possible 4.1 cm right renal mass ; further evaluation with dynamic contrast CT or MRI of the kidneys recommended. Assessment & Plan - Diagnosis (1) Acute renal failure Qualifiers: Acute renal failure type: unspecified Qualified Code(s): N17.9 - Acute kidney failure, unspecified Is this a current diagnosis for this admission?: YesPlan: Secondary to working in the heat and poor oral intake. Improving with hydration. Avoid nephrotoxic medications and dosages. Nephrology consult pending. No mass on MRI (2) Dyspnea Qualifiers: Dyspnea type: dyspnea on exertion Qualified Code(s): R06.09 - Other forms of dyspnea Is this a current diagnosis for this admission?: YesPlan: VQ scan negative for PE. Chest xray unremarkable. Patient appears euvolemic (3) Elevated LFTs Is this a current diagnosis for this admission?: Yes (4) Anticoagulated Is this a current diagnosis for this admission?: Yes (5) Atrial fibrillation Qualifiers: Atrial fibrillation type: chronic Qualified Code(s): I48.2 - Chronic atrial fibrillation Is this a current diagnosis for this admission?: YesPlan: Presently rate controlled on metoprolol and pradaxa (6) HTN (hypertension) Qualifiers: Hypertension type: essential hypertension Qualified Code(s): I10 - Essential (primary) hypertension Is this a current diagnosis for this admission?: YesPlan: normotensive (7) Chronic systolic (congestive) heart failure Is this a current diagnosis for this admission?: YesPlan: PAtient reports by history. No echo [facility] - Time Time Spent with patient: 25-34 minutes Critical Time spent with patient: 15-24 minutes Smoking Cessation Education: 3 to 10 minutes Medications reviewed and adjusted accordingly: Yes Anticipated discharge: Home with Homehealth
[2016-11-09] MEDS ORDERED: DIAZEPAM 5 MG TABLET PO PRN (17:14)
[2016-11-10] MEDS: DILTIAZEM HCL 30 MG TABLET PO SCH ×4 (05:35→23:50)
[2016-11-10 07:55] LABS: ALANINE AMINOTRANSFERASE 31 U/L (21-72); ALBUMIN 3.6 g/dL (3.5-5.0); ALKALINE PHOSPHATASE 72 U/L (38-126); ANION GAP 8 (5-19); ASPARTATE AMINO TRANSFERASE 23 U/L (17-59); BILIRUBIN,DIRECT 0.5 mg/dL (0.0-0.4); BILIRUBIN,TOTAL 0.8 mg/dL (0.2-1.3); BLOOD UREA NITROGEN 60 mg/dL (7-20); CALCIUM 8.9 mg/dL (8.4-10.2); CARBON DIOXIDE 23 mmol/L (22-30); CHLORIDE 104 mmol/L (98-107); CREATININE RESULT 1.86 mg/dL (0.52-1.25); GLUCOSE 107 mg/dL (75-110); POTASSIUM 4.3 mmol/L (3.6-5.0); SODIUM 135.4 mmol/L (137-145); TOTAL PROTEIN 6.2 g/dL (6.3-8.2)
[2016-11-10] MEDS: THIAMINE HCL 100 MG TABLET PO SCH (10:10)
[2016-11-10] MEDS: NORMAL SALINE 1000 ML 1,000 ML IV PRN ×2 (10:11→18:15)
[2016-11-10] MEDS: MULTIVITAMIN TABLET PO SCH (10:11)
[2016-11-10] MEDS: FOLIC ACID 1 MG TABLET PO SCH (10:11)
[2016-11-10] MEDS: METOPROLOL TARTRATE 25 MG TABLET PO SCH ×2 (10:11→21:40)
[2016-11-10] MEDS: DABIGATRAN ETEXILATE 75 MG CAPSULE PO SCH ×2 (10:11→21:39)
[2016-11-10] MEDS: DOCUSATE SODIUM 100 MG CAPSULE PO SCH ×2 (10:32→17:47)
--- NOTE | 2016-11-10 11:36 | PDOC CONSULTATION ---
Consultation Consult Date: 11/09/16 Consult reason:: AK I, hypotension History of Present Illness Admission Date/PCP: 11/08/16 21:17 DARRICK NEWMAN MD History of Present Illness: MAZIN ZIMMER is a 51 year old male with underlying long-standing hypertension, atrial fibrillation, on Pradaxa for same, a reported history of congestive heart failure, arthritis, distant history of seizure 1, never on antiepileptic half pack a day smoker, and alcohol use disorder in the form of a case of beer every 2 weeks combined with the fifth of whiskey every week who presents to the emergency room complaints of intermittent and persistent orthostasis and near syncope. Yesterday, he was walking his dogs, he became extremely short of breath and diaphoretic. Lasted about 15 minutes and resolved on its own. 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 While in the waiting room, he had a 5 minute episode of sharp left-sided chest pain that resolved on its own. Currently resting quietly, without specific complaints other than being somewhat tired. Girlfriend reportedly mentioned that patient had a "seizure" earlier today. She is currently not present. Patient does remember the episode, stating that he had "convulsions." No fecal or urinary incontinence. No biting of the tongue. Did state he was a bit confused for a while afterwards. No chronic genitourinary tract disease or conditions, including stones, prostatitis, or infection. Does state that his urine output is been a bit less over the last day or so, and a bit darker. He also admits to eating less solid food over the last 2 days, been drinking plenty of water. However, no previous ME. No history of pulmonary embolus or DVT. No recent long trip with prolonged inactivity, or unusual lower extremity swelling or tenderness. No previous stress test, although he is status post ablation for his atrial fibrillation approximately 6 years ago. Positive family history of coronary artery disease. No recent change in his medications. Compliant with same. No ankle swelling. No nausea vomiting, fever or chills, diarrhea or dysuria. Denies any chronic pulmonary disease, including asthma, COPD, emphysema, or sleep apnea. Patient was discussed at length with the ER physician last night. Clinically he looked dehydrated besides being hypotensive and was therefore begun on fluid resuscitation and today he feels a whole lot better. He denies any history of hematuria or prostatism. No history of any fever chills. No history of being on any recent NSAIDs. Said multiple evaluations done since admission including a negative VQ scan, and a renal ultrasound which was followed by an MRI which was negative for renal tumor. MRI showed some focal scarring of the mid right kidney and some nonhemorrhagic cysts. Past Medical History Cardiac Medical History: Reports: Atrial Fibrillation, Hyperlipidemia, Hypertension-primary Denies: DVT, Myocardial Infarction, Pulmonary Embolism Pulmonary Medical History: Denies: Asthma, Chronic Obstructive Pulmonary Disease (COPD), Sleep Apnea EENT Medical History: Reports: Eyes - Glasses Denies: Ears, Throat Neurological Medical History: Reports: Seizures - Questionable seizure approximately 15 years ago; never on antiepileptic. Denies: Hemorrhagic CVA, Ischemic CVA Endocrine Medical History: Denies: Diabetes Mellitus Type 1, Diabetes Mellitus Type 2, Hyperthyroidism, Hypothyroidism Renal/ Medical History: Reports: None GI Medical History: Denies: Cirrhosis, Gastroesophageal Reflux Disease, Hepatitis, Peptic Ulcer Disease Musculoskeltal Medical History: Reports: Arthritis Skin Medical History: Reports: None Psychiatric Medical History: Reports: Alcohol Dependency, Tobacco Dependency Denies: Depression, General Anxiety Disorder, Substance Abuse Infectious Medical History: Denies: Hepatitis B, Hepatitis C Past Surgical History Past Surgical History: Reports: Tonsillectomy, Other - Ablation for atrial fibrillation. Social History Smoking Status: Current Every Day Smoker Cigarettes Packs Per Day: 0.5 Number of Years Smokin Last Time Smoked: 11/08/2016 Frequency of Alcohol Use: Heavy Hx Recreational Drug Use: No Drugs: None Hx Prescription Drug Abuse: No - Advance Directive Resuscitation Status: Full Code Family History Parental Family History Reviewed: Yes - Negative for CKD Children Family History Reviewed: No Sibling(s) Family History Reviewed.: Yes - Negative for CKD Medication/Allergy Home Medications: Dabigatran Etexilate Mesylate [Pradaxa 150 mg Capsule] 150 mg PO Q12 11/08/16 Diltiazem HCl [Cardizem 30 mg Tablet] 30 mg PO Q6 11/08/16 Lisinopril [Prinivil 10 mg Tablet] 10 mg PO DAILY 11/08/16 Metoprolol Tartrate [Lopressor 25 mg Tablet] 12.5 mg PO Q12 08/14/17 Allergies/Adverse Reactions: Penicillins Allergy (Verified 06/20/15 11:26) Review of Systems Constitutional: PRESENT: fatigue. ABSENT: anorexia, chills, fever(s), headache( s), weakness, weight gain, weight loss Eyes: ABSENT: visual disturbances Ears: ABSENT: hearing changes Nose, Mouth, and Throat: ABSENT: mouth pain, sore throat Cardiovascular: PRESENT: orthropnea. ABSENT: dyspnea on exertion, edema, palpitations Respiratory: ABSENT: cough, dyspnea, hemoptysis Gastrointestinal: ABSENT: abdominal pain, bloating, coffee ground emesis, diarrhea, dysphagia, heartburn, hematemesis, melena, nausea, vomiting Genitourinary: ABSENT: difficulty urinating, dysuria, hematuria Integumentary: ABSENT: pruritus, rash Neurological: ABSENT: abnormal movements, abnormal speech, focal weakness Endocrine: ABSENT: heat intolerance, polydipsia Hematologic/Lymphatic: ABSENT: easy bruising, lymphadenopathy Physical Exam Vital Signs: Temp Pulse Resp BP Pulse Ox 97.7 F 131 H 18 111/74 95 11/09/16 08:22 11/09/16 08:33 11/09/16 08:22 11/09/16 08:33 11/09/16 08:33 Intake & Output 11/08/16 11/09/16 11/10/16 06:59 06:59 06:59 Intake Total 1240 614 Output Total 3 Balance 1240 611 Weight 106 kg General appearance: PRESENT: no acute distress Eye exam: PRESENT: conjunctiva pink, EOMI, PERRLA. ABSENT: nystagmus, scleral icterus Ear exam: PRESENT: normal external ear exam Mouth exam: PRESENT: neck supple. ABSENT: moist Neck exam: ABSENT: lymphadenopathy, meningismus, tenderness, thyromegaly, tracheal deviation Respiratory exam: PRESENT: clear to auscultation irasema. ABSENT: crackles, rhonchi Cardiovascular exam: PRESENT: +S1, +S2 - Tachycardic between 110 and 120 but regular, systolic murmur GI/Abdominal exam: PRESENT: normal bowel sounds, soft. ABSENT: organomegaly, tenderness Extremities exam: ABSENT: pedal edema - At the venous stasis changes in both legs but mainly in his left leg Neurological exam: PRESENT: alert, awake, oriented to person, oriented to place , oriented to time Skin exam: PRESENT: dry. ABSENT: erythema, normal color - Venous stasis changes as mentioned earlier Results Laboratory Results: 11/09/16 04:19 11/09/16 04:19 11/08/16 11/08/16 11/08/16 22:35 22:35 22:35 WBC RBC Hgb Hct MCV MCH MCHC RDW Plt Count Seg Neutrophils % Lymphocytes % Monocytes % Eosinophils % Basophils % Absolute Neutrophils Absolute Lymphocytes Absolute Monocytes Absolute Eosinophils Absolute Basophils Sodium 131.8 L Potassium 3.8 Chloride 86 L Carbon Dioxide 23 Anion Gap 23 H BUN 87 H Creatinine 5.50 H Est GFR ( Amer) 13 L Est GFR (Non-Af Amer) 11 L Glucose 116 H Calcium 8.9 Phosphorus 6.7 H Magnesium 1.6 Triglycerides Cholesterol LDL Cholesterol Direct VLDL Cholesterol HDL Cholesterol TSH 0.56 Urine Color Urine Appearance Urine pH Ur Specific [place] Urine Protein Urine Glucose (UA) Urine Ketones Urine Blood Urine Nitrite Ur Leukocyte Esterase Urine WBC (Auto) Urine RBC (Auto) 11/09/16 11/09/16 11/09/16 00:50 04:19 04:19 WBC 9.5 RBC 4.34 L Hgb 14.2 Hct 40.9 MCV 94 MCH 32.7 MCHC 34.7 RDW 13.7 Plt Count 146 L Seg Neutrophils % 65.8 Lymphocytes % 17.7 Monocytes % 12.1 Eosinophils % 3.6 Basophils % 0.8 Absolute Neutrophils 6.3 Absolute Lymphocytes 1.7 Absolute Monocytes 1.1 Absolute Eosinophils 0.3 Absolute Basophils 0.1 Sodium 130.7 L Potassium 4.1 Chloride 88 L Carbon Dioxide 24 Anion Gap 19 BUN 89 H Creatinine 4.61 H Est GFR ( Amer) 16 L Est GFR (Non-Af Amer) 14 L Glucose 97 Calcium 8.9 Phosphorus Magnesium Triglycerides 201 H Cholesterol 198.48 LDL Cholesterol Direct 147 H VLDL Cholesterol 40.2 H HDL Cholesterol 42 TSH Urine Color YELLOW Urine Appearance CLEAR Urine pH 5.0 Ur Specific [place] 1.005 Urine Protein NEGATIVE Urine Glucose (UA) 50 H Urine Ketones NEGATIVE Urine Blood SMALL H Urine Nitrite NEGATIVE Ur Leukocyte Esterase TRACE H Urine WBC (Auto) 3 Urine RBC (Auto) 1 11/08/16 11/08/16 11/09/16 22:35 22:35 04:19 Creatine Kinase 145 Troponin I 0.028 0.026 Impressions: Head CT 11/08/16 00:00 IMPRESSION: No significant intracranial abnormalities were identified. Other findings as noted above Chest X-Ray 11/08/16 15:44 IMPRESSION: NO ACUTE RADIOGRAPHIC FINDING IN THE CHEST. Lung Scan-VQ NM 11/08/16 19:37 IMPRESSION: NORMAL VENTILATION-PERFUSION LUNG SCAN. NEGATIVE FOR PULMONARY EMBOLI. Abdomen MRI 11/09/16 00:00 IMPRESSION: Focal cortical scarring in the posterior right mid-pole kidney with adjacent 10 mm nonhemorrhagic cysts. No discrete right renal mass identified by MRI. Renal Ultrasound 11/09/16 00:00 IMPRESSION: Possible 4.1 cm right renal mass ; further evaluation with dynamic contrast CT or MRI of the kidneys recommended. Assessment & Plan - Diagnosis (1) Acute renal failure Qualifiers: Acute renal failure type: unspecified Qualified Code(s): N17.9 - Acute kidney failure, unspecified Is this a current diagnosis for this admission?: Yes Plan: Indeterminate etiology. Patient was hypotensive for reasons which are not clear at the moment. Patient blood pressures responded well to fluid resuscitation. No evidences to indicate acute congestive heart failure, ME, sepsis, dissection or other acute issues. Continue to monitor. MRI scan showed a focal scarring and midpole of right kidney with no other lesions. (2) Chronic systolic (congestive) heart failure Is this a current diagnosis for this admission?: Yes (3) Hypotension Plan: Unsure of the exact etiology. Gives a history of diaphoresis working in extremely hot environment in the kitchen. However he is been working there for the last 2 months and is not entirely new and has probably acclimatized to that environment. Given his family history would recommend a cardiac workup including stress testing. (4) Atrial fibrillation Qualifiers: Atrial fibrillation type: chronic Qualified Code(s): I48.2 - Chronic atrial fibrillation Is this a current diagnosis for this admission?: Yes Plan: On Pradaxa.Rate controlled. (5) HTN (hypertension) Qualifiers: Hypertension type: essential hypertension Qualified Code(s): I10 - Essential (primary) hypertension Is this a current diagnosis for this admission?: Yes Plan: Patient on multiple antihypertensives which are on hold at the moment.
--- NOTE | 2016-11-10 11:38 | PDOC PROGRESS REPORT ---
Subjective Progress Note for:: 11/10/16 Subjective:: Patient seen in the hospital today. He continues to improve on just IV fluid repletion. He denies any history of chest pain shortness of breath. No history of an abdominal pains hematuria. No history of any headaches. Blood pressure is in the low 100 systolics. He is off all antihypertensives.His renal numbers are improving and his latest creatinine is 1.8. Physical Exam Vital Signs: Temp Pulse Resp BP Pulse Ox 97.6 F 45 L 19 110/69 95 11/10/16 08:39 11/10/16 08:39 11/10/16 08:39 11/10/16 08:39 11/10/16 08:39 Intake & Output 11/09/16 11/10/16 11/11/16 06:59 06:59 06:59 Intake Total 1240 4014 Output Total 5 Balance 1240 4009 Weight 106 kg 107.8 kg General appearance: PRESENT: no acute distress Respiratory exam: PRESENT: clear to auscultation irasema. ABSENT: crackles, rhonchi Cardiovascular exam: PRESENT: +S1, +S2 - Tachycardic between 110 and 120 but regular, systolic murmur GI/Abdominal exam: PRESENT: normal bowel sounds, soft. ABSENT: organomegaly, tenderness Extremities exam: ABSENT: pedal edema Neurological exam: PRESENT: alert, awake, oriented to person, oriented to place Results Laboratory Results: 11/09/16 04:19 11/10/16 05:56 11/10/16 05:56 Sodium 135.4 L Potassium 4.3 Chloride 104 Carbon Dioxide 23 Anion Gap 8 BUN 60 H Creatinine 1.86 H Est GFR ( Amer) 47 L Est GFR (Non-Af Amer) 38 L Glucose 107 Calcium 8.9 Total Bilirubin 0.8 AST 23 ALT 31 Alkaline Phosphatase 72 Total Protein 6.2 L Albumin 3.6 11/08/16 11/08/16 11/09/16 22:35 22:35 04:19 Creatine Kinase 145 Troponin I 0.028 0.026 Impressions: Head CT 11/08/16 00:00 IMPRESSION: No significant intracranial abnormalities were identified. Other findings as noted above Chest X-Ray 11/08/16 15:44 IMPRESSION: NO ACUTE RADIOGRAPHIC FINDING IN THE CHEST. Lung Scan-VQ NM 11/08/16 19:37 IMPRESSION: NORMAL VENTILATION-PERFUSION LUNG SCAN. NEGATIVE FOR PULMONARY EMBOLI. Abdomen MRI 11/09/16 00:00 IMPRESSION: Focal cortical scarring in the posterior right mid-pole kidney with adjacent 10 mm nonhemorrhagic cysts. No discrete right renal mass identified by MRI. Renal Ultrasound 11/09/16 00:00 IMPRESSION: Possible 4.1 cm right renal mass ; further evaluation with dynamic contrast CT or MRI of the kidneys recommended. Assessment & Plan - Diagnosis (1) Hypotension Plan: Improving with just fluid resuscitation.Patient off all antihypertensives.Would recommend gradual reintroduction of antihypertensives as an outpatient. (2) Acute renal failure Qualifiers: Acute renal failure type: unspecified Qualified Code(s): N17.9 - Acute kidney failure, unspecified Is this a current diagnosis for this admission?: Yes Plan: Improving renal numbers with fluid resuscitation. Exact etiology is rather indeterminate of the moment.
[2016-11-10 15:20] LABS: ANION GAP 11 (5-19); BLOOD UREA NITROGEN 47 mg/dL (7-20); CALCIUM 9.1 mg/dL (8.4-10.2); CARBON DIOXIDE 25 mmol/L (22-30); CHLORIDE 100 mmol/L (98-107); CREATININE RESULT 1.84 mg/dL (0.52-1.25); GLUCOSE 123 mg/dL (75-110); POTASSIUM 4.9 mmol/L (3.6-5.0); SODIUM 135.9 mmol/L (137-145)
--- NOTE | 2016-11-10 16:32 | PDOC PROGRESS REPORT ---
Subjective Progress Note for:: 11/10/16 Subjective:: Patient is seen on morning rounds. Awake alert and oriented 3. Any shortness of breath, chest pain or dyspnea. Denies any fever or chills. He states his grandson was staying with he and his son and not sleeping. He admits to not eating or drinking well. He has a history he reports of chronic systolic heart failure which has been stable. He does drink alcohol daily, but has never had a problem with DT's or withdrawal. He denies any other symptoms. Physical Exam Vital Signs: Temp Pulse Resp BP Pulse Ox 97.6 F 93 18 111/74 96 11/10/16 11:19 11/10/16 14:00 11/10/16 11:19 11/10/16 11:19 11/10/16 11:19 Intake & Output 11/09/16 11/10/16 11/11/16 06:59 06:59 06:59 Intake Total 1240 4014 598 Output Total 5 Balance 1240 4009 598 Weight 106 kg 107.8 kg General appearance: PRESENT: no acute distress, obese, well-developed, well- nourished Head exam: PRESENT: atraumatic, normocephalic Eye exam: PRESENT: conjunctiva pink, EOMI, PERRLA. ABSENT: scleral icterus Ear exam: PRESENT: normal external ear exam Mouth exam: PRESENT: moist, tongue midline Neck exam: ABSENT: carotid bruit, JVD, lymphadenopathy, thyromegaly Respiratory exam: PRESENT: clear to auscultation irasema. ABSENT: rales, rhonchi, wheezes Cardiovascular exam: PRESENT: RRR. ABSENT: diastolic murmur, rubs, systolic murmur Pulses: PRESENT: normal dorsalis pedis pul Vascular exam: PRESENT: normal capillary refill GI/Abdominal exam: PRESENT: normal bowel sounds, soft. ABSENT: distended, guarding, mass, organolmegaly, rebound, tenderness Rectal exam: PRESENT: deferred Extremities exam: PRESENT: full ROM. ABSENT: calf tenderness, clubbing, pedal edema Neurological exam: PRESENT: alert, awake, oriented to person, oriented to place , oriented to time, oriented to situation, CN II-XII grossly intact. ABSENT: motor sensory deficit Psychiatric exam: PRESENT: appropriate affect, normal mood. ABSENT: homicidal ideation, suicidal ideation Skin exam: PRESENT: dry, intact, warm. ABSENT: cyanosis, rash Results Laboratory Results: 11/09/16 04:19 11/10/16 14:28 11/10/16 11/10/16 05:56 14:28 Sodium 135.4 L 135.9 L Potassium 4.3 4.9 Chloride 104 100 Carbon Dioxide 23 25 Anion Gap 8 11 BUN 60 H 47 H Creatinine 1.86 H 1.84 H Est GFR ( Amer) 47 L 47 L Est GFR (Non-Af Amer) 38 L 39 L Glucose 107 123 H Calcium 8.9 9.1 Total Bilirubin 0.8 AST 23 ALT 31 Alkaline Phosphatase 72 Total Protein 6.2 L Albumin 3.6 11/08/16 11/08/16 11/09/16 22:35 22:35 04:19 Creatine Kinase 145 Troponin I 0.028 0.026 Impressions: Head CT 11/08/16 00:00 IMPRESSION: No significant intracranial abnormalities were identified. Other findings as noted above Chest X-Ray 11/08/16 15:44 IMPRESSION: NO ACUTE RADIOGRAPHIC FINDING IN THE CHEST. Lung Scan-VQ NM 11/08/16 19:37 IMPRESSION: NORMAL VENTILATION-PERFUSION LUNG SCAN. NEGATIVE FOR PULMONARY EMBOLI. Abdomen MRI 11/09/16 00:00 IMPRESSION: Focal cortical scarring in the posterior right mid-pole kidney with adjacent 10 mm nonhemorrhagic cysts. No discrete right renal mass identified by MRI. Renal Ultrasound 11/09/16 00:00 IMPRESSION: Possible 4.1 cm right renal mass ; further evaluation with dynamic contrast CT or MRI of the kidneys recommended. Assessment & Plan - Diagnosis (1) Acute renal failure Qualifiers: Acute renal failure type: unspecified Qualified Code(s): N17.9 - Acute kidney failure, unspecified Is this a current diagnosis for this admission?: Yes Plan: Improving with hydration. Etiology is unclear, may be combination of dehydration and hypotension secondary to medications Avoid nephrotoxic medications and dosages. Nephrology consulted Dr Garcia is seeing patient in consult. No mass on MRI (2) Dyspnea Qualifiers: Dyspnea type: dyspnea on exertion Qualified Code(s): R06.09 - Other forms of dyspnea Is this a current diagnosis for this admission?: Yes Plan: Resolved (3) Elevated LFTs Is this a current diagnosis for this admission?: Yes Plan: Monitor. Daily etoh use (4) Anticoagulated Is this a current diagnosis for this admission?: Yes (5) Atrial fibrillation Qualifiers: Atrial fibrillation type: chronic Qualified Code(s): I48.2 - Chronic atrial fibrillation Is this a current diagnosis for this admission?: Yes Plan: Presently rate controlled on metoprolol and pradaxa (6) HTN (hypertension) Qualifiers: Hypertension type: essential hypertension Qualified Code(s): I10 - Essential (primary) hypertension Is this a current diagnosis for this admission?: Yes Plan: normotensive (7) Chronic systolic (congestive) heart failure Is this a current diagnosis for this admission?: Yes Plan: PAtient reports by history. No echo here [facility] - Time Time Spent with patient: 25-34 minutes Critical Time spent with patient: 25-34 minutes Anticipated discharge: Home Within: within 24 hours
[2016-11-11] MEDS: DILTIAZEM HCL 30 MG TABLET PO SCH (05:15)
[2016-11-11] MEDS: NORMAL SALINE 1000 ML 1,000 ML IV PRN (05:16)
[2016-11-11 05:39] LABS: ANION GAP 9 (5-19); BLOOD UREA NITROGEN 38 mg/dL (7-20); CALCIUM 8.8 mg/dL (8.4-10.2); CARBON DIOXIDE 24 mmol/L (22-30); CHLORIDE 104 mmol/L (98-107); GLUCOSE 109 mg/dL (75-110); POTASSIUM 4.7 mmol/L (3.6-5.0)
[2016-11-11] MEDS: DOCUSATE SODIUM 100 MG CAPSULE PO SCH (10:20)
[2016-11-11] MEDS: METOPROLOL TARTRATE 25 MG TABLET PO SCH (10:41)
[2016-11-11] MEDS: FOLIC ACID 1 MG TABLET PO SCH (10:41)
[2016-11-11] MEDS: THIAMINE HCL 100 MG TABLET PO SCH (10:41)
[2016-11-11] MEDS: MULTIVITAMIN TABLET PO SCH (10:41)
[2016-11-11] MEDS: DABIGATRAN ETEXILATE 75 MG CAPSULE PO SCH (10:41)
[2016-11-11 10:46] VITALS: BP 104/72
--- NOTE | 2016-11-11 13:36 | PDOC PROGRESS REPORT ---
Subjective Progress Note for:: 11/11/16 Subjective:: Patient was seen today laying comfortably in his bed. He was ready to go home. Urine out put is normal and it is a clear to light yellow. Physical Exam Vital Signs: Temp Pulse Resp BP Pulse Ox 97.6 F 50 L 16 104/72 99 11/11/16 10:43 11/11/16 10:43 11/11/16 10:43 11/11/16 10:43 11/11/16 10:43 Intake & Output 11/10/16 11/11/16 11/12/16 06:59 06:59 06:59 Intake Total 4014 4720 Output Total 5 2 Balance 4009 4718 Weight 108.2 kg General appearance: PRESENT: no acute distress, well-developed, well-nourished Head exam: PRESENT: atraumatic, normocephalic Mouth exam: PRESENT: moist, neck supple Neck exam: PRESENT: full ROM. ABSENT: JVD, tracheal deviation Respiratory exam: PRESENT: clear to auscultation irasema. ABSENT: accessory muscle use, chest wall tenderness Cardiovascular exam: PRESENT: +S1, +S2 - Tachycardic between 110 and 120 but regular, systolic murmur GI/Abdominal exam: PRESENT: normal bowel sounds, soft. ABSENT: organomegaly, tenderness Extremities exam: ABSENT: joint swelling, pedal edema, tenderness Musculoskeletal exam: PRESENT: normal inspection. ABSENT: deformity Neurological exam: PRESENT: alert, awake, oriented to person, oriented to place , oriented to time, oriented to situation Psychiatric exam: PRESENT: appropriate affect, normal mood Skin exam: PRESENT: dry, intact, warm. ABSENT: cyanosis, rash Results Laboratory Results: 11/09/16 04:19 11/11/16 04:22 11/10/16 11/11/16 14:28 04:22 Sodium 135.9 L 137.0 Potassium 4.9 4.7 Chloride 100 104 Carbon Dioxide 25 24 Anion Gap 11 9 BUN 47 H 38 H Creatinine 1.84 H 1.30 H Est GFR ( Amer) 47 L > 60 Est GFR (Non-Af Amer) 39 L 58 L Glucose 123 H 109 Calcium 9.1 8.8 11/09/16 00:50 Clean Catch Midstream Urine Culture - Final NO GROWTH 2 DAYS 08/14/17 08/14/17 08/15/17 22:35 22:35 04:19 Creatine Kinase 145 Troponin I 0.028 0.026 Impressions: Head CT 11/08/16 00:00 IMPRESSION: No significant intracranial abnormalities were identified. Other findings as noted above Chest X-Ray 11/08/16 15:44 IMPRESSION: NO ACUTE RADIOGRAPHIC FINDING IN THE CHEST. Lung Scan-VQ NM 11/08/16 19:37 IMPRESSION: NORMAL VENTILATION-PERFUSION LUNG SCAN. NEGATIVE FOR PULMONARY EMBOLI. Abdomen MRI 11/09/16 00:00 IMPRESSION: Focal cortical scarring in the posterior right mid-pole kidney with adjacent 10 mm nonhemorrhagic cysts. No discrete right renal mass identified by MRI. Renal Ultrasound 11/09/16 00:00 IMPRESSION: Possible 4.1 cm right renal mass ; further evaluation with dynamic contrast CT or MRI of the kidneys recommended. Assessment & Plan - Diagnosis (1) Acute renal failure Qualifiers: Acute renal failure type: unspecified Qualified Code(s): N17.9 - Acute kidney failure, unspecified Is this a current diagnosis for this admission?: Yes Plan: Patients DARCIE looks to be resolving. Advised to follow up as outpatient with Dr. Garcia or me or talk to [facility] about [facility] to follow up. From nephrology's perspective he is ready for discharge. (2) HTN (hypertension) Qualifiers: Hypertension type: essential hypertension Qualified Code(s): I10 - Essential (primary) hypertension Is this a current diagnosis for this admission?: Yes
--- NOTE | 2016-11-11 14:02 | PDOC DISCHARGE SUMMARY ---
General - Admit/Disc Date/PCP Admission Date/Primary Care Provider: 11/08/16 21:17 DARRICK NEWMAN MD Discharge Date: 11/11/16 - Discharge Diagnosis (1) Acute renal failure Is this a current diagnosis for this admission?: Yes Summary: Resolved (2) Dyspnea Is this a current diagnosis for this admission?: Yes Summary: Resolved (3) Elevated LFTs Is this a current diagnosis for this admission?: Yes Summary: Resolved (4) Anticoagulated Is this a current diagnosis for this admission?: Yes Summary: Continue pradaxa (5) Atrial fibrillation Is this a current diagnosis for this admission?: Yes Summary: Rate controlled on pradaxa (6) HTN (hypertension) Is this a current diagnosis for this admission?: Yes Summary: Presently normotensive on metoprolol. Hold cardiazem and lisinopril until seen by his PCP (7) Chronic systolic (congestive) heart failure Is this a current diagnosis for this admission?: Yes Summary: Continue current medications and doses - Additional Information Resuscitation Status: Full Code Discharge Diet: Cardiac Discharge Activity: Activity As Tolerated, Balance Activity w/Rest Home Medications: Dabigatran Etexilate Mesylate [Pradaxa 150 mg Capsule] 150 mg PO Q12 11/08/16 Metoprolol Tartrate [Lopressor 25 mg Tablet] 12.5 mg PO Q12 11/08/16 Acetaminophen [Tylenol 325 mg Tablet] 650 mg PO Q8HP PRN tablet 11/11/16 History of Present Illness Patient complains of: Shortness of breath History of Present Illness: MAZIN ZIMMER is a 51 year old male with underlying atrial fibrillation, on Pradaxa for same, a reported history of congestive heart failure, arthritis, hypertension, distant history of seizure 1, never on antiepileptic half pack a day smoker, and alcohol use disorder in the form of a case of beer every 2 weeks combined with the fifth of whiskey every week who presents to the emergency room for evaluation of above complaints. Patient has been discussed with emergency room physician who evaluated the patient. Yesterday, he was walking his dogs, he became extremely short of breath and diaphoretic. Lasted about 15 minutes and resolved on its own. 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 While in the waiting room, he had a 5 minute episode of sharp left-sided chest pain that resolved on its own. Currently resting quietly, without specific complaints other than being somewhat tired. Girlfriend reportedly mentioned that patient had a "seizure" earlier today. She is currently not present. Patient does remember the episode, stating that he had "convulsions." No fecal or urinary incontinence. No biting of the tongue. Did state he was a bit confused for a while afterwards. No chronic genitourinary tract disease or conditions, including stones, prostatitis, or infection. Does state that his urine output is been a bit less over the last day or so, and a bit darker. He also admits to eating less solid food over the last 2 days, been drinking plenty of water. However, no previous IN. No history of pulmonary embolus or DVT. No recent long trip with prolonged inactivity, or unusual lower extremity swelling or tenderness. Hospital Course Hospital Course: Patient is admitted to [facility] on telemetry. He was aggressively rehydrated with normal saline IV fluid. Dr Garcia was consulted for nephrology. He continued to be in rate controlled atrial fibrillation. VQ scan was negative for PE. Patient did not require any oxygen supplementation. His bun/cr resolved to normal over the next 2 days. His blood pressure was noted to be low normal, his cardiazem and lisinopril were held. He will follow up with his primary care provider and nephrology Physical Exam Vital Signs: Temp Pulse Resp BP Pulse Ox 97.6 F 50 L 16 104/72 99 11/11/16 10:43 11/11/16 10:43 11/11/16 10:43 11/11/16 10:43 11/11/16 10:43 Intake & Output 11/10/16 11/11/16 11/12/16 06:59 06:59 06:59 Intake Total 4014 4720 Output Total 5 2 Balance 4009 4718 Weight 108.2 kg General appearance: PRESENT: no acute distress, well-developed, well-nourished Head exam: PRESENT: atraumatic, normocephalic Eye exam: PRESENT: conjunctival injection Ear exam: PRESENT: normal external ear exam Mouth exam: PRESENT: moist, tongue midline Neck exam: ABSENT: carotid bruit, JVD, lymphadenopathy, thyromegaly Respiratory exam: PRESENT: clear to auscultation irasema, symmetrical. ABSENT: rales, rhonchi, wheezes Cardiovascular exam: PRESENT: irregular rhythm, +S1, +S2 Pulses: PRESENT: normal dorsalis pedis pul Vascular exam: PRESENT: normal capillary refill GI/Abdominal exam: PRESENT: normal bowel sounds, soft. ABSENT: distended, guarding, mass, organolmegaly, rebound, tenderness Rectal exam: PRESENT: deferred Extremities exam: PRESENT: full ROM. ABSENT: calf tenderness, clubbing, pedal edema Neurological exam: PRESENT: alert, awake, oriented to person, oriented to place , oriented to time, oriented to situation, CN II-XII grossly intact. ABSENT: motor sensory deficit Psychiatric exam: PRESENT: appropriate affect, normal mood. ABSENT: homicidal ideation, suicidal ideation Skin exam: PRESENT: dry, intact, warm. ABSENT: cyanosis, rash Results Laboratory Results: 11/09/16 04:19 11/11/16 04:22 11/10/16 11/11/16 14:28 04:22 Sodium 135.9 L 137.0 Potassium 4.9 4.7 Chloride 100 104 Carbon Dioxide 25 24 Anion Gap 11 9 BUN 47 H 38 H Creatinine 1.84 H 1.30 H Est GFR ( Amer) 47 L > 60 Est GFR (Non-Af Amer) 39 L 58 L Glucose 123 H 109 Calcium 9.1 8.8 11/09/16 00:50 Clean Catch Midstream Urine Culture - Final NO GROWTH 2 DAYS 11/08/16 11/08/16 11/09/16 22:35 22:35 04:19 Creatine Kinase 145 Troponin I 0.028 0.026 Impressions: Head CT 11/08/16 00:00 IMPRESSION: No significant intracranial abnormalities were identified. Other findings as noted above Chest X-Ray 11/08/16 15:44 IMPRESSION: NO ACUTE RADIOGRAPHIC FINDING IN THE CHEST. Lung Scan-VQ NM 11/08/16 19:37 IMPRESSION: NORMAL VENTILATION-PERFUSION LUNG SCAN. NEGATIVE FOR PULMONARY EMBOLI. Abdomen MRI 11/09/16 00:00 IMPRESSION: Focal cortical scarring in the posterior right mid-pole kidney with adjacent 10 mm nonhemorrhagic cysts. No discrete right renal mass identified by MRI. Renal Ultrasound 11/09/16 00:00 IMPRESSION: Possible 4.1 cm right renal mass ; further evaluation with dynamic contrast CT or MRI of the kidneys recommended. Qualifiers PATEINT BEING DISCHARGED WITH ANY OF THE FOLLOWING DIAGNOSIS?: No Plan Discharge Plan: Home Time Spent: Less than 30 Minutes
== END 2016-11-11 11:11 | disposition home or self-care (01) | DRG 683 ==
LOC: ER 15:11 → UNDOADMIN 19:50 → EH 19:50 → 3N 11-09 00:06
PROVIDERS: ADMIT Family Medicine; ATTEND Family Medicine
DX: N17.9 Acute kidney failure, unspecified (principal); I50.22 Chronic systolic (congestive) heart failure; Q61.01 Congenital single renal cyst; I11.0 Hypertensive heart disease with heart failure; I48.2 Chronic atrial fibrillation; R79.89 Other specified abnormal findings of blood chemistry; M19.90 Unspecified osteoarthritis, unspecified site; F17.210 Nicotine dependence, cigarettes, uncomplicated; E78.5 Hyperlipidemia, unspecified; F10.20 Alcohol dependence, uncomplicated; Y90.0 Blood alcohol level of less than 20 mg/100 ml; I95.9 Hypotension, unspecified; Z88.0 Allergy status to penicillin; Z79.899 Other long term (current) drug therapy; Z79.01 Long term (current) use of anticoagulants; Z82.49 Family history of ischemic heart disease and other diseases of the circulatory system
CPT/HCPCS: 36415; 70450; 71010; 74181; 76775; 78582; 80048; 80053; 80061; 80307; 81001; 82533; 82550; 83735; 83880; 84100; 84443; 84484; 85025; 85610; 85730; 87086; 93005; 93010; 99291; A9540; A9567; J3490; J7030; Q9969

== ENCOUNTER 2018-09-01 22:54 | Emergency (ER) | payer OTHER ==
--- NOTE | 2018-09-02 00:22 | ER Document Report ---
ED Medical Screen (RME) - General Chief Complaint: Psych Problem Stated Complaint: PSYCH ISSUE Time Seen by Provider: 09/02/18 00:15 Primary Care Provider: DARRICK NEWMAN MD [Primary Care Provider] - Follow up as needed Notes: 53-year-old male brought in by mobile crisis for suicidal ideations. Mobile crisis tells me patient was threatening to "drive the car into the ocean to end it all". Patient admits to being intoxicated tonight, he states he is much less intoxicated now, he states he did decide to come into "get checked out". He denies any current symptoms. Past medical history of AICD placement and "arr hythmia", states he is a former heavy alcoholic but had not had anything to drink for 1.5 years. TRAVEL OUTSIDE OF THE U[place] IN LAST 30 DAYS: No - Related Data Allergies/Adverse Reactions: Penicillins Allergy (Verified 06/20/15 11:26) Past Medical History - Past Medical History Cardiac Medical History: Reports: Hx Atrial Fibrillation, Hx Congestive Heart Failure, Hx Hypercholesterolemia, Hx Hypertension Denies: Hx DVT, Hx Heart Attack, Hx Pulmonary Embolism Pulmonary Medical History: Denies: Hx Asthma, Hx COPD, Hx Sleep Apnea Neurological Medical History: Reports: Hx Seizures - Questionable seizure appr oximately 15 years ago; never on antiepileptic. Endocrine Medical History: Denies: Hx Diabetes Mellitus Type 1, Hx Diabetes Mellitus Type 2, Hx Hyperthyroidism, Hx Hypothyroidism Renal/ Medical History: Denies: Hx Peritoneal Dialysis GI Medical History: Denies: Hx Cirrhosis, Hx Gastroesophageal Reflux Disease, Hx Hepatitis Musculoskeltal Medical History: Reports Hx Arthritis Psychiatric Medical History: Denies: Hx Depression Infectious Medical History: Denies: Hx Hepatitis Past Surgical History: Reports: Hx Cardiac Surgery, Hx Tonsillectomy, Other - Ablation for atrial fibrillation. - Immunizations Immunizations up to date: Yes Hx Diphtheria, Pertussis, Tetanus Vaccination: Yes Physical Exam - Vital signs Vitals: Temp Pulse Resp BP Pulse Ox 97.5 F 59 L 18 142/85 H 97 09/01/18 23:14 09/01/18 23:14 09/01/18 23:14 09/01/18 23:14 09/01/18 23:14 - General General appearance: Appears well, Alert In distress: None - Respiratory Respiratory status: No respiratory distress Breath sounds: Normal - Cardiovascular Rhythm: Regular. No: Tachycardia Heart sounds: Normal auscultation, S1 appreciated, S2 appreciated Course - Re-evaluation Re-evalutation: I have greeted and performed a rapid initial assessment of this patient. A comprehensive ED assessment and evaluation of the patient, analysis of test results and completion of the medical decision making process will be conducted by additional ED providers. - Vital Signs Vital signs: Temp Pulse Resp BP Pulse Ox 97.5 F 59 L 18 142/85 H 97 09/01/18 23:14 09/01/18 23:14 09/01/18 23:14 09/01/18 23:14 09/01/18 23:14 Doctor's Discharge - Discharge Referrals: DARRICK NEWMAN MD [Primary Care Provider] - Follow up as needed
[2018-09-02 00:42] LABS: ABSOLUTE BASOPHILS # (AUTO) 0.1 10^3/uL (0.0-0.2); ABSOLUTE EOSINOPHILS # (AUTO) 0.3 10^3/uL (0.0-0.6); ABSOLUTE LYMPHOCYTES (AUTO) 2.5 10^3/uL (0.5-4.7); ABSOLUTE MONOCYTES (AUTO) 0.6 10^3/uL (0.1-1.4); ABSOLUTE NEUT (AUTO) 5.8 10^3/uL (1.7-8.2); BASOPHILS % (AUTO) 1.3 % (0-2); EOSINOPHILS % (AUTO) 3.3 % (0-6); HEMATOCRIT 48.1 % (37.9-51.0); HEMOGLOBIN 16.6 g/dL (13.5-17.0); LYMPHOCYTES % (AUTO) 26.7 % (13-45); MEAN CORPUSCULAR HEMOGLOBIN 30.4 pg (27.0-33.4); MEAN CORPUSCULAR HGB CONC 34.5 g/dL (32.0-36.0); MEAN CORPUSCULAR VOLUME 88 fl (80-97); MONOCYTES % (AUTO) 6.3 % (3-13); PLATELET COUNT 331 10^3/uL (150-450); RED BLOOD COUNT 5.46 10^6/uL (4.35-5.55); RED CELL DISTRIBUTION WIDTH 14.4 % (11.5-14.0); SEGMENTED NEUTROPHILS % (AUTO) 62.4 % (42-78); TOTAL CELLS COUNTED % (AUTO) 100 %; WHITE BLOOD COUNT 9.2 10^3/uL (4.0-10.5)
[2018-09-02 01:00] LABS: ALANINE AMINOTRANSFERASE 15 U/L (21-72); ALBUMIN 5.1 g/dL (3.5-5.0); ALCOHOL 214 mg/dL (NONE DETECTED); ALKALINE PHOSPHATASE 79 U/L (38-126); ANION GAP 18 (5-19); ASPARTATE AMINO TRANSFERASE 17 U/L (17-59); BILIRUBIN,DIRECT 0.5 mg/dL (0.0-0.4); BILIRUBIN,TOTAL 0.9 mg/dL (0.2-1.3); BLOOD UREA NITROGEN 17 mg/dL (7-20); CALCIUM 10.3 mg/dL (8.4-10.2); CARBON DIOXIDE 26 mmol/L (22-30); CHLORIDE 104 mmol/L (98-107); GLUCOSE 93 mg/dL (75-110); POTASSIUM 4.2 mmol/L (3.6-5.0); SODIUM 147.5 mmol/L (137-145); TOTAL PROTEIN 8.4 g/dL (6.3-8.2)
[2018-09-02 01:06] LABS: ACETAMINOPHEN < 10 ug/mL (10-30); SALICYLATE < 1.0 mg/dL (2.0-20.0)
--- NOTE | 2018-09-02 01:20 | ER Document Report ---
ED Psych Disorder / Suicide - General Chief Complaint: Psych Problem Stated Complaint: PSYCH ISSUE Time Seen by Provider: 09/02/18 00:15 Primary Care Provider: DARRICK NEWMAN MD [NO LOCAL MD] - Follow up as needed Mode of Arrival: Ambulatory Information source: Patient Notes: This is a 53-year-old man that is brought in by [facility] because of depression and suicidal ideations in the setting friend out at [facility]. Patient does report drinking alcohol. He does report that he is currently homeless and that he has poor family support. He denies any chest pain, shortness of breath, abdominal pain. He denies any auditory or visual hallucinations. TRAVEL OUTSIDE OF THE [place] IN LAST 30 DAYS: No - HPI Patient complains to provider of: Aggression, Suicidal ideation Onset: Just prior to arrival Onset was: Gradual Quality of pain: No pain Severity: None Pain Level: Denies Suicide Risk Factors: Lack of social support Situational problems related to: denies: Daughter, Legal problems, Lost job, Parent, Recent , Recent divorce, School, Sexual orientation, Significant other, Son, Spouse, Work, Other Suicide Attempt Method: denies: Drowning, Hanging, Motor Vehicle, Overdose, Shooting, Stabbing/Cutting, Train, Other Injury to: No: Generalized, Abdomen, Ankle, Back, Breast, Buttocks, Chest, Elbow, Epigastric, Flank, Face, Finger, Foot, Hand, Head, Hip, Knee, Leg, Lower extremity, Mouth, Neck, Pelvic, Penis, Perineum, Rectum, Shoulder, Testicle, Thigh, Throat, Trunk, Upper extremity, Vagina, Wrist Normal mood: No - Depressed Associated symptoms: Depressed Similar symptoms previously: Yes Recently seen / treated by doctor: No - Related Data Allergies/Adverse Reactions: Penicillins Allergy (Verified 06/20/15 11:26) Past Medical History - General Information source: Patient - Social History Smoking Status: Current Every Day Smoker Cigarette use (# per day): Yes - 1 pack/day Chew tobacco use (# tins/day): No Frequency of alcohol use: None Drug Abuse: None Lives with: Alone Family History: CAD, Hyperlipidemia, Hypertension, Thyroid Disfunction Patient has suicidal ideation: Yes Patient has homicidal ideation: No - Past Medical History Cardiac Medical History: Reports: Hx Atrial Fibrillation, Hx Congestive Heart Failure, Hx Hypercholesterolemia, Hx Hypertension Denies: Hx DVT, Hx Heart Attack, Hx Pulmonary Embolism Pulmonary Medical History: Denies: Hx Asthma, Hx COPD, Hx Sleep Apnea Neurological Medical History: Reports: Hx Seizures - Questionable seizure approximately 15 years ago; never on antiepileptic. Endocrine Medical History: Denies: Hx Diabetes Mellitus Type 1, Hx Diabetes Mellitus Type 2, Hx Hyperthyroidism, Hx Hypothyroidism Renal/ Medical History: Denies: Hx Peritoneal Dialysis GI Medical History: Denies: Hx Cirrhosis, Hx Gastroesophageal Reflux Disease, Hx Hepatitis Musculoskeletal Medical History: Reports Hx Arthritis Psychiatric Medical History: Denies: Hx Depression Infectious Medical History: Denies: Hx Hepatitis Past Surgical History: Reports: Hx Cardiac Surgery, Hx Tonsillectomy, Other - Ablation for atrial fibrillation. - Immunizations Immunizations up to date: Yes Hx Diphtheria, Pertussis, Tetanus Vaccination: Yes Review of Systems - Review of Systems Constitutional: denies: Chills, Fever EENT: No symptoms reported Cardiovascular: No symptoms reported Respiratory: No symptoms reported Gastrointestinal: No symptoms reported Genitourinary: No symptoms reported Male Genitourinary: No symptoms reported Musculoskeletal: No symptoms reported Skin: No symptoms reported Hematologic/Lymphatic: No symptoms reported Neurological/Psychological: See HPI Physical Exam - Vital signs Vitals: Temp Pulse Resp BP Pulse Ox 97.5 F 59 L 18 142/85 H 97 09/01/18 23:14 09/01/18 23:14 09/01/18 23:14 09/01/18 23:14 09/01/18 23:14 Notes: Physical exam: GENERAL: Patient is alert and oriented x3, no acute distress HEAD: Atraumatic, normocephalic. EYES: Pupils equal round and reactive to light, extraocular movements intact, sclera anicteric, conjunctiva are normal. ENT: TMs normal, nares patent, oropharynx clear without exudates. Moist mucous membranes. NECK: Normal range of motion, supple without obvious mass or JVD. LUNGS: Breath sounds clear to auscultation bilaterally and equal. No wheezes rales or rhonchi. HEART: Regular rate and rhythm without murmurs, rubs or gallops. ABDOMEN: Soft, normoactive bowel sounds. No tenderness to palpation. No guarding, no rebound. No masses appreciated. EXTREMITIES: Normal range of motion, no pitting or edema. No clubbing or cy anosis. NEUROLOGICAL: Cranial nerves II through XII grossly intact. Normal speech, moving all extremities. PSYCH: Normal mood, normal affect. SKIN: Warm, Dry, normal turgor, no rashes or lesions noted. Course - Vital Signs Vital signs: Temp Pulse Resp BP Pulse Ox 97.5 F 59 L 18 142/85 H 97 09/01/18 23:14 09/01/18 23:14 09/01/18 23:14 09/01/18 23:14 09/01/18 23:14 - Laboratory Result Diagrams: 09/02/18 00:17 09/02/18 00:17 Laboratory results interpreted by me: 09/02/18 09/02/18 00:17 00:17 RDW 14.4 H Sodium 147.5 H Calcium 10.3 H Direct Bilirubin 0.5 H ALT 15 L Total Protein 8.4 H Albumin 5.1 H Salicylates < 1.0 L Acetaminophen < 10 L - EKG Interpretation by Me Rate: Normal Rhythm: NSR - EKG shows normal sinus rhythm with no acute ST-T wave changes. V1 V2 appear as though the leads were in close proximity. Discharge - Discharge Clinical Impression: Depression, Alcohol intoxication Condition: Stable Disposition: HOME, SELF-CARE Referrals: DARRICK NEWMAN MD [NO LOCAL MD] - Follow up as needed
[2018-09-02 09:05] LABS: APPEARANCE,URINE CLEAR; BILIRUBIN,URINE NEGATIVE (NEGATIVE); COLOR,URINE YELLOW; GLUCOSE, URINE NEGATIVE (NEGATIVE); KETONES,URINE NEGATIVE (NEGATIVE); URINE SPECIFIC GRAVITY 1.016
[2018-09-02 09:06] LABS: LEUKOCYTE ESTERASE,URINE NEGATIVE (NEGATIVE); NITRITE,URINE NEGATIVE (NEGATIVE); PROTEIN,URINE NEGATIVE (NEGATIVE)
[2018-09-02 09:29] LABS: URINE AMPHETAMINES SCREEN NEGATIVE; URINE BARBITURATES SCREEN NEGATIVE; URINE BENZODIAZEPINES SCREEN NEGATIVE; URINE COCAINE SCREEN NEGATIVE; URINE MARIJUANA (THC) SCREEN NEGATIVE; URINE METHADONE SCREEN NEGATIVE; URINE PHENCYCLIDINE SCREEN NEGATIVE
--- NOTE | 2018-09-02 10:04 | ER Document Report ---
Doctor's Note Notes: 09/02/18 10:02 Rounds: Chart reviewed and patient interviewed. Patient is being evaluated for suicidal ideation and depression. Also history of heavy alcohol intake. Patient is homeles Patient's EtOH was 214 on admission. Vital signs of all been normal. Patient says he is feeling less depressed and not suicidal this morning. Patient appears to be medically stable for transfer or discharge. Jay Martinez MD 09/02/18 17:11 Patient is going to be here overnight. Reviewed his regular medications. He is on Pradaxa for uncertain reasons. History of atrial fibrillation. Currently in sinus rhythm. Extremely high blood alcohols, patient is a risk to fall and I do not think he should be on blood thinners at this point. He also is routinely on Lopressor 12.5 mg twice a day. His blood pressure is currently reasonably close to normal and his heart rate is 60 so I am not going to prescribe the Lopressor beta-rickey. Have ordered him Tylenol as needed for pain. Jay Martinez MD
--- NOTE | 2018-09-02 11:59 | EKG REPORT ---
SEVERITY:- ABNORMAL ECG - SINUS RHYTHM PROBABLE LEFT ATRIAL ABNORMALITY BORDERLINE T ABNORMALITIES, ANTERIOR LEADS BORDERLINE PROLONGED QT INTERVAL : Confirmed by: Dion Townsend MD 02-Sep-2018 11:58:09
--- NOTE | 2018-09-02 15:17 | PSYCHOLOGICAL NOTE ---
Psych Note - Psych Note Date seen by psych provider: 09/02/18 Time seen by psych provider: 07:30 - [id number] Psych Note: Reason for Consult: suicidal ideation This is a 53-year-old man that is brought in by [facility] because of depression and suicidal ideations in the setting friend out at [facility]. Patient reports that mobile crisis brought him to [facility] because [place] thought [place] of [place] He reports that "a lot of different stuff" has been going on and he has been feeling bad for about a week or 2 however refuses to further discuss stressors or trigger. [facility] denies [facility] of [facility]. He reports that he does have a history of alcohol abuse however was sober a year and a half "until last night." Patient attempts to deny having a plan of how he would harm himself. When reminded he confirms and states "I had a lot of different things that went through my head but I was nowhere near my vehicle because I was drinking." (original note by first nurse, during patient's initial arrival, mis-stated the patient attempted to drive onto the beach) Patient then confirms that he did call his friend and mention that he was done and wanted to drive into the ocean. Patient reports that his son is coming soon to take him back to his truck. When clinician asked about consent permissions patient denies stating that he would have to contact his son first. Patient spoke with [employer] crisis who reports that the patient was brought to [facility] after being found at [facility] reporting suicidal ideation with a plan of driving into the ocean. Patient was intoxicated. They continue to report the patient is currently homeless and living in his car after an argument with his son. They continue to disclose that upon arrival to [facility] the patient contacted his son in an attempt to leave the ED stating repeatedly that he was "fine." Patient was convinced to stay. [facility] [place] is full [facility] [place] has bed availability and is currently reviewing patient's packet Patient is alert and orientated to person, place, time and circumstance. Mood is irritable with congruent affect. Patient currently denies suicidal homicidal ideation however patient presented with concerns of suicidal ideation with plan of driving into the ocean. [place] Delusions are absent behaviors congruent with an intact reality based presentation i.e. organized and linear thought process. Thought content is very guarded and attempts to minimize. Eye contact is poor. Conversational speech is very short. Intellectual abilities appear to be within the average range. Attention and concentration is fair. Insight, judgment, impulse control is poor. Unspecified depressive disorder alcohol use disorder with relapse after 1 1/2 year sober Medication recommendations per [facility]'s contracted psychiatrist Dr Balta HORN are as follows Buspar 5mg every morning and 10mg every evening impression\\plan: Patient is recommended for IVC. Patient presented to [facility] with concerns of suicidal ideation and plan. Patient was intoxicated; however, this was his first relapse after a year and a half sobriety. Patient is noted to be very guarded and minimizes with all [facility] staff including attending physicians upon first arrival and continues today with clinician. Patient apparently had family discord/argument with his son and has chosen to leave his home and live in his car. Patient will not discuss details surrounding his stressors or triggers. Patient continues to demonstrate little insight into his current situation as he frequently states that he is ready to leave and disclosed to clinician that his son was on his way to come and pick him up. Dr. Allred was consulted to care management of this patient; attending physicians in agreement with recommendations and disposition.
[2018-09-02] MEDS ORDERED: ACETAMINOPHEN 325 MG TABLET PO PRN (17:09)
[2018-09-03] MEDS ORDERED: BUSPIRONE HCL 10 MG TABLET PO SCH (08:00)
[2018-09-03 09:29] VITALS: BP 152/88
--- NOTE | 2018-09-03 09:43 | ER Document Report ---
Doctor's Note Notes: 09/03/18 09:42 Patient here in the emergency department, awaiting placement for depression, suicidal ideation, alcohol abuse. He has no complaints or concerns this morning. Is been eating well. States he is fine with being [facility] [place]. Nursing notes reviewed. Physical exam reveals a 53-year-old male in no acute distress. Head is normocephalic and atraumatic. Pupils are equal round, reactive to light. Heart is regular rate and rhythm, lungs clear to oscillation bilaterally. Affect is slightly agitated but cooperative with examiner. Plan will be to transfer the [facility] to the [facility] [place] [facility] care.
== END 2018-09-03 10:37 | disposition home or self-care (01) ==
LOC: ER 22:54
DX: F32.9 Major depressive disorder, single episode, unspecified (principal); F10.129 Alcohol abuse with intoxication, unspecified; Y90.7 Blood alcohol level of 200-239 mg/100 ml; R45.851 Suicidal ideations; F17.210 Nicotine dependence, cigarettes, uncomplicated; I10 Essential (primary) hypertension; I48.91 Unspecified atrial fibrillation; Z79.02 Long term (current) use of antithrombotics/antiplatelets; Z59.0 Homelessness; Z63.8 Other specified problems related to primary support group; Z88.0 Allergy status to penicillin; Z79.899 Other long term (current) drug therapy
CPT/HCPCS: 36415; 80053; 80307; 81001; 85025; 93005; 93010; 99285

== ENCOUNTER 2018-09-19 14:52 | Inpatient (IN) | payer OTHER ==
--- NOTE | 2018-09-19 15:23 | ER Document Report ---
ED Medical Screen (RME) - General Chief Complaint: Flank Pain Stated Complaint: FLANK PAIN Time Seen by Provider: 09/19/18 15:21 Primary Care Provider: RANULFO,SHERRY [Primary Care Provider] - Follow up as needed Information source: Patient Notes: Patient presents complaining of right flank pain that started yesterday. Patient also reports productive cough that started yesterday. Patient denies any fever nausea vomiting or urinary symptoms. Patient states right flank pain radiates to the lateral side. I have greeted and performed a rapid initial assessment of this patient. A comprehensive ED assessment and evaluation of the patient, analysis of test results and completion of the medical decision making process will be conducted by additional ED providers. TRAVEL OUTSIDE OF THE [place].S. IN LAST 30 DAYS: No - Related Data Allergies/Adverse Reactions: Penicillins Allergy (Verified 09/19/18 14:53) Past Medical History - Past Medical History Cardiac Medical History: Reports: Hx Atrial Fibrillation, Hx Congestive Heart Failure, Hx Hypercholesterolemia, Hx Hypertension Denies: Hx DVT, Hx Heart Attack, Hx Pulmonary Embolism Pulmonary Medical History: Denies: Hx Asthma, Hx COPD, Hx Sleep Apnea Neurological Medical History: Reports: Hx Seizures - Questionable seizure approximately 15 years ago; never on antiepileptic. Endocrine Medical History: Denies: Hx Diabetes Mellitus Type 1, Hx Diabetes Mellitus Type 2, Hx Hyperthyroidism, Hx Hypothyroidism Renal/ Medical History: Denies: Hx Peritoneal Dialysis GI Medical History: Denies: Hx Cirrhosis, Hx Gastroesophageal Reflux Disease, Hx Hepatitis Musculoskeltal Medical History: Reports Hx Arthritis Psychiatric Medical History: Denies: Hx Depression Infectious Medical History: Denies: Hx Hepatitis Past Surgical History: Reports: Hx Cardiac Surgery, Hx Tonsillectomy, Other - Ablation for atrial fibrillation. - Immunizations Immunizations up to date: Yes Hx Diphtheria, Pertussis, Tetanus Vaccination: Yes Physical Exam - Vital signs Vitals: Temp Pulse Resp BP Pulse Ox 98.3 F 89 18 142/93 H 97 09/19/18 14:57 09/19/18 14:57 09/19/18 14:57 09/19/18 14:57 09/19/18 14:57 - Back Back: CVA tenderness - Right Course - Vital Signs Vital signs: Temp Pulse Resp BP Pulse Ox 98.3 F 89 18 142/93 H 97 09/19/18 14:57 09/19/18 14:57 09/19/18 14:57 09/19/18 14:57 09/19/18 14:57 Doctor's Discharge - Discharge [facility]: [facility] [Primary [facility] Provider[facility] - Follow up as needed
[2018-09-19 15:45] LABS: ABSOLUTE BASOPHILS # (AUTO) 0.1 10^3/uL (0.0-0.2); ABSOLUTE EOSINOPHILS # (AUTO) 0.2 10^3/uL (0.0-0.6); ABSOLUTE LYMPHOCYTES (AUTO) 1.2 10^3/uL (0.5-4.7); ABSOLUTE MONOCYTES (AUTO) 1.2 10^3/uL (0.1-1.4); ABSOLUTE NEUT (AUTO) 11.7 10^3/uL (1.7-8.2); BASOPHILS % (AUTO) 0.8 % (0-2); EOSINOPHILS % (AUTO) 1.5 % (0-6); HEMATOCRIT 44.5 % (37.9-51.0); HEMOGLOBIN 15.3 g/dL (13.5-17.0); LYMPHOCYTES % (AUTO) 8.3 % (13-45); MEAN CORPUSCULAR HEMOGLOBIN 30.4 pg (27.0-33.4); MEAN CORPUSCULAR HGB CONC 34.4 g/dL (32.0-36.0); MEAN CORPUSCULAR VOLUME 88 fl (80-97); MONOCYTES % (AUTO) 8.5 % (3-13); PLATELET COUNT 183 10^3/uL (150-450); RED BLOOD COUNT 5.04 10^6/uL (4.35-5.55); RED CELL DISTRIBUTION WIDTH 15.7 % (11.5-14.0); SEGMENTED NEUTROPHILS % (AUTO) 80.9 % (42-78); TOTAL CELLS COUNTED % (AUTO) 100 %; WHITE BLOOD COUNT 14.4 10^3/uL (4.0-10.5)
[2018-09-19 15:48] LABS: APPEARANCE,URINE SLIGHTLY-CLOUDY; BILIRUBIN,URINE SMALL (NEGATIVE); COLOR,URINE AMBER; GLUCOSE, URINE NEGATIVE (NEGATIVE); KETONES,URINE TRACE mg/dL (NEGATIVE); LEUKOCYTE ESTERASE,URINE SMALL (NEGATIVE); NITRITE,URINE NEGATIVE (NEGATIVE); PROTEIN,URINE 30 mg/dL (NEGATIVE); URINE SPECIFIC GRAVITY 1.028
--- NOTE | 2018-09-19 15:54 | RADIOLOGY REPORT (SQ) ---
EXAM DESCRIPTION: CHEST 2 VIEWS COMPLETED DATE/TIME: 09/19/2018 3:39 pm REASON FOR STUDY: cough COMPARISON: 11/08/2016 TECHNIQUE: Frontal and lateral radiographic views of the chest acquired. NUMBER OF VIEWS: Two view. LIMITATIONS: None. FINDINGS: LUNGS AND PLEURA: No pneumothorax. Increased bilateral basilar interstitial markings -sub segmental atelectasis. No dense consolidation or pleural effusion. MEDIASTINUM AND HILAR STRUCTURES: Stable. HEART AND VASCULAR STRUCTURES: Stable. BONES: Irregular appearance of the posterior right 7th and 8th ribs, uncertain etiology. HARDWARE: Cardiac pacer. OTHER: No other significant finding. IMPRESSION: Increased bilateral basilar interstitial markings -subsegmental atelectasis. Irregular appearance of the posterior right 7th and 8th ribs is suggested compared with the prior study, uncert ain etiology. Consider additional evaluation. TECHNICAL DOCUMENTATION: JOB ID: [id number] [place]-72 2010 [employer]- All Rights Reserved Reading location - IP/workstation name: [email or web address]
[2018-09-19 16:01] LABS: ALANINE AMINOTRANSFERASE 16 U/L (21-72); ALBUMIN 4.6 g/dL (3.5-5.0); ALKALINE PHOSPHATASE 76 U/L (38-126); ANION GAP 12 (5-19); ASPARTATE AMINO TRANSFERASE 14 U/L (17-59); BILIRUBIN,DIRECT 0.5 mg/dL (0.0-0.4); BILIRUBIN,TOTAL 2.3 mg/dL (0.2-1.3); BLOOD UREA NITROGEN 16 mg/dL (7-20); CALCIUM 9.7 mg/dL (8.4-10.2); CARBON DIOXIDE 30 mmol/L (22-30); CHLORIDE 95 mmol/L (98-107); GLUCOSE 114 mg/dL (75-110); POTASSIUM 4.2 mmol/L (3.6-5.0); SODIUM 137.1 mmol/L (137-145); TOTAL PROTEIN 7.5 g/dL (6.3-8.2)
[2018-09-19] MEDS ORDERED: NORMAL SALINE 1000 ML 1,000 ML IV ONE (17:17)
[2018-09-19] MEDS ORDERED: FENTANYL CITRATE INJ/PF 100 MCG/2 ML AMPUL IV ONE ×3 (17:47→20:30)
[2018-09-19] MEDS ORDERED: ONDANSETRON HCL INJ/PF 4 MG/2 ML SDV IV ONE (17:47)
--- NOTE | 2018-09-19 18:32 | RADIOLOGY REPORT (SQ) ---
EXAM DESCRIPTION: CT ABD/PELVIS NO ORAL OR IV COMPLETED DATE/TIME: 09/19/2018 6:13 pm REASON FOR STUDY: right flank pain, moving to RLQ COMPARISON: 04/30/2010 TECHNIQUE: CT scan of the abdomen and pelvis performed without intravenous or oral contrast. Images reviewed with lung, soft tissue, and bone windows. Reconstructed coronal and sagittal MPR images revi ewed. All images stored on PACS. All CT scanners at this facility use dose modulation, iterative reconstruction, and/or weight based d osing when appropriate to reduce radiation dose to as low as reasonably achievable (ALARA). [facility]: Dose Right [facility]: CareDose [facility]: Dose Right [facility]: Teradose 4D [facility]: Smart [employer] RADIATION DOSE: CT Rad equipment meets quality standard of care and radiation dose reduction techniq ues were employed. CTDIvol: 14.0 mGy. DLP: 832 mGy-cm.mGy. LIMITATIONS: None. FINDINGS: LOWER CHEST: Minimal bibasilar subsegmental atelectasis-scarring. NON-CONTRASTED LIVER, SPLEEN, ADRENALS: Evaluation limited by lack of IV contrast. No identified sign ificant masses. PANCREAS: No masses. No peripancreatic inflammatory changes. GALLBLADDER: No calcified stones. No inflammatory changes to suggest cholecystitis. RIGHT KIDNEY AND URETER: Mild perinephric stranding. No cysts identified. No solid masses. No calci fied stones. No hydronephrosis or hydroureter. LEFT KIDNEY AND URETER: Mild perinephric stranding.No cysts identified. No solid masses. No calcifie d stones. No hydronephrosis or hydroureter. AORTA AND RETROPERITONEUM: No aneurysm. No retroperitoneal bulky adenopathy. BOWEL AND PERITONEAL CAVITY: No obvious masses or inflammatory changes. No free fluid. APPENDIX: Normal. PELVIS, BLADDER, AND ABDOMINAL WALL:No abnormal masses. No free fluid. Unremarkable bladder. BONES: No acute findings. OTHER: No other significant finding. IMPRESSION: Mild bilateral perinephric stranding, nonspecific.No calcified stones. No hydronephrosi s or hydroureter. TECHNICAL DOCUMENTATION: JOB ID: [id number] [place]-72 Quality ID # [id number]: Final reports with documentation of one or more dose reduction techniques (e.g., Au tomated exposure control, adjustment of the mA and/or kV according to patient size, use of iterative reconstruction technique) 2010 [facility] [place] [facility] [employer]- All Rights Reserved Reading location - IP/workstation name: [facility] [place] CITY[place]ufthouseHÉCTOR
[2018-09-19] MEDS ORDERED: CEFTRIAXONE 1 GM/D5W RTU 1 GM/50 ML RTUPB IV ONE (18:41)
[2018-09-19] MEDS ORDERED: AZITHROMYCIN 250 MG TABLET PO ONE (19:10)
--- NOTE | 2018-09-19 19:12 | ER Document Report ---
ED General - General Chief Complaint: Flank Pain Stated Complaint: FLANK PAIN Time Seen by Provider: 09/19/18 15:21 Notes: RME provider note: Patient presents complaining of right flank pain that started yesterday. Patient also reports productive cough that started yesterday. Patient denies any fever nausea vomiting or urinary symptoms. Patient states right flank pain radiates to the lateral side. MY HPI: Patient is a 53-year-old male presents to the emergency department for right flank pain started yesterday. States at times it radiates around to his right upper quadrant. Patient's denying any nausea, vomiting, diarrhea, fever. States he does have a history of kidney failure but is never been diagnosed with kidney stones. Patient's denying any dysuria or penile discharge. Past medical history: Pacemaker, atrial fibrillation, congestive heart failure Medications: Pradaxa. Patient has other medications but he is unsure of the names Allergies: Penicillin TRAVEL OUTSIDE OF THE [place] IN LAST 30 DAYS: No - Related Data Allergies/Adverse Reactions: Penicillins Allergy (Verified 09/19/18 14:53) Past Medical History - General Information source: Patient - Social History Smoking Status: Current Every Day Smoker Chew tobacco use (# tins/day): No Frequency of alcohol use: None Drug Abuse: None Family History: CAD, Hyperlipidemia, Hypertension, Thyroid Disfunction Patient has suicidal ideation: No Patient has homicidal ideation: No - Past Medical History Cardiac Medical History: Reports: Hx Atrial Fibrillation, Hx Congestive Heart Failure, Hx Hypercholesterolemia, Hx Hypertension Denies: Hx DVT, Hx Heart Attack, Hx Pulmonary Embolism Pulmonary Medical History: Denies: Hx Asthma, Hx COPD, Hx Sleep Apnea Neurological Medical History: Reports: Hx Seizures - Questionable seizure approximately 15 years ago; never on antiepileptic. Endocrine Medical History: Denies: Hx Diabetes Mellitus Type 1, Hx Diabetes Mellitus Type 2, Hx Hyperthyroidism, Hx Hypothyroidism Renal/ Medical History: Denies: Hx Peritoneal Dialysis GI Medical History: Denies: Hx Cirrhosis, Hx Gastroesophageal Reflux Disease, Hx Hepatitis Musculoskeletal Medical History: Reports Hx Arthritis Psychiatric Medical History: Denies: Hx Depression Infectious Medical History: Denies: Hx Hepatitis Past Surgical History: Reports: Hx Cardiac Surgery, Hx Tonsillectomy, Other - Ablation for atrial fibrillation. - Immunizations Immunizations up to date: Yes Hx Diphtheria, Pertussis, Tetanus Vaccination: Yes Review of Systems - Review of Systems Constitutional: denies: Fever EENT: No symptoms reported Cardiovascular: No symptoms reported Respiratory: No symptoms reported Gastrointestinal: See HPI Genitourinary: See HPI Male Genitourinary: See HPI Musculoskeletal: See HPI Skin: No symptoms reported Hematologic/Lymphatic: No symptoms reported Neurological/Psychological: No symptoms reported Physical Exam - Vital signs Vitals: Temp Pulse Resp BP Pulse Ox 98.3 F 89 18 142/93 H 97 09/19/18 14:57 09/19/18 14:57 09/19/18 14:57 09/19/18 14:57 09/19/18 14:57 - Notes Notes: GENERAL: Alert, interacts well. No acute distress. HEAD: Normocephalic, atraumatic. EYES: Pupils equal, round, and reactive to light. Extraocular movements intact. ENT: Oral mucosa moist, tongue midline. NECK: Full range of motion. Supple. Trachea midline. LUNGS: Clear to auscultation bilaterally, no wheezes, rales, or rhonchi. No respiratory distress. HEART: Regular rate and rhythm. No murmur ABDOMEN: Soft, non-tender. Non-distended. Bowel sounds present in all 4 quadrants. No McBurney's point tenderness, no Smith sign noted. No pelvic pain noted bilaterally. EXTREMITIES: Moves all 4 extremities spontaneously. No edema, normal radial and dorsalis pedis pulses bilaterally. No cyanosis. BACK: no cervical, thoracic, lumbar midline tenderness. No saddle anesthesia, normal distal neurovascular exam. Generalized right CVA tenderness. No outward signs of trauma noted no crepitus felt, no ecchymosis or erythema NEUROLOGICAL: Alert and oriented x3. Normal speech. cranial nerves II through XII grossly intact PSYCH: Normal affect, normal mood. SKIN: Warm, dry, normal turgor. No rashes or lesions noted. Genitalia: Chief [employer] [place], bilateral testicles descended nonerythematous, nontender bilaterally. No discharge noted at the meatus. Course - Re-evaluation Re-evalutation: 09/19/18 19:10 Laboratory 09/19/18 09/19/18 09/19/18 15:30 15:30 15:30 WBC 14.4 H RBC 5.04 Hgb 15.3 Hct 44.5 MCV 88 MCH 30.4 MCHC 34.4 RDW 15.7 H Plt Count 183 Seg Neutrophils % 80.9 H Lymphocytes % 8.3 L Monocytes % 8.5 Eosinophils % 1.5 Basophils % 0.8 Absolute Neutrophils 11.7 H Absolute Lymphocytes 1.2 Absolute Monocytes 1.2 Absolute Eosinophils 0.2 Absolute Basophils 0.1 Sodium 137.1 Potassium 4.2 Chloride 95 L Carbon Dioxide 30 Anion Gap 12 BUN 16 Creatinine 0.85 Est GFR ( Amer) > 60 Est GFR (Non-Af Amer) > 60 Glucose 114 H Calcium 9.7 Total Bilirubin 2.3 H Direct Bilirubin 0.5 H Neonat Total Bilirubin Not Reportable Neonat Direct Bilirubin Not Reportable Neonat Indirect Bili Not Reportable AST 14 L ALT 16 L Alkaline Phosphatase 76 Total Protein 7.5 Albumin 4.6 Urine Color LUIS Urine Appearance SLIGHTLY-CLOUDY Urine pH 5.0 Ur Specific [place] 1.028 Urine Protein 30 H Urine Glucose (UA) NEGATIVE Urine Ketones TRACE H Urine Blood NEGATIVE Urine Nitrite NEGATIVE Urine Bilirubin SMALL H Urine Urobilinogen 4.0 H Ur Leukocyte Esterase SMALL H Urine WBC (Auto) 27 Urine RBC (Auto) 0 Urine Mucus (Auto) MANY Urine Ascorbic Acid NEGATIVE Chest X-Ray 09/19/18 15:21 IMPRESSION: Increased bilateral basilar interstitial markings -subsegmental a telectasis. Irregular appearance of the posterior right 7th and 8th ribs is suggested compared with the prior study, uncertain etiology. Consider additional evaluation. Abdomen/Pelvis CT 09/19/18 17:46 IMPRESSION: Mild bilateral perinephric stranding, nonspecific.No calcified stones. No hydronephrosis or hydroureter. I discussed patient's lab and imaging results. Patient initially denies any sort of trauma or injury. When I discussed the rib fractures that he has patient states "oh yeah I did break my ribs a couple months ago." States he was seen at the [facility] for same. I have also discussed the perinephric fat stranding noticed on bilateral kidneys. Discussed the urine results with patient will send for culture. Initially patient denies any exposure to gonorrhea or chlamydia, is refusing prophylactic treatment. Patient was initially given a dose of ceftriaxone will be sent home on Keflex for urinary tract infection. Patient then comes out and tells nursing staff that he would like to be prophylactically treated for gonorrhea and chlamydia. Azithromycin added to patient's treatment regimens. As I am attempting to d/c the Pt. he continues to state he has pain. He is requesting more pain medications. Pts heart rate remains WNL, but at times he becomes diaphoretic and will not lay flat on the bed d/t pain. Discussed this case with my attending Dr. Scotty Donovan who will exam the Pt. at bedside. States to give the Pt. on more dose of pain medication and then admit if pain is not controlled. 09/19/18 22:47 Despite multiple doses of narcotic pain medication patient continues to be an 5 out of 5 pain in his right flank. Patient's urinary tract infection connected with his bilateral perinephric stranding is consistent with pyelonephritis. His pain is uncontrolled so I will attempt to contact hospitalist Dr. Jacobs for admission. Discussed this case with hospitalist Dr. Jacobs who will accept the patient for pyelonephritis and uncontrolled pain. - Vital Signs Vital signs: Temp Pulse Resp BP Pulse Ox 98.3 F 81 16 108/74 96 09/19/18 23:26 09/19/18 23:26 09/19/18 23:26 09/19/18 23:26 09/19/18 23:26 - Laboratory Result Diagrams: 09/19/18 15:30 09/19/18 15:30 Laboratory results interpreted by me: 09/19/18 09/19/18 09/19/18 15:30 15:30 15:30 WBC 14.4 H RDW 15.7 H Seg Neutrophils % 80.9 H Lymphocytes % 8.3 L Absolute Neutrophils 11.7 H Chloride 95 L Glucose 114 H Total Bilirubin 2.3 H Direct Bilirubin 0.5 H AST 14 L ALT 16 L Urine Protein 30 H Urine Ketones TRACE H Urine Bilirubin SMALL H Urine Urobilinogen 4.0 H Ur Leukocyte Esterase SMALL H Discharge - Discharge Clinical Impression: Pyelonephritis, Intractable pain Condition: Fair Disposition: ADMITTED INPATIENT Admitting Provider: Arlene (Hospitalist) Unit Admitted: Medical Floor
[2018-09-19 20:22] LABS: LIPASE 25.1 U/L (23-300)
[2018-09-19 20:23] LABS: ALCOHOL < 10 mg/dL (NONE DETECTED)
[2018-09-19] MEDS ORDERED: HYDROMORPHONE HCL INJ/PF 2 MG/ML AMPULE IV ONE ×2 (20:33→22:09)
[2018-09-19 21:33] LABS: CHLAM PCR NOT DETECTED (NOT DETECT)
--- NOTE | 2018-09-19 21:51 | RADIOLOGY REPORT (SQ) ---
EXAM DESCRIPTION: US ABDOMEN LIMITED COMPLETED DATE/TME: 09/19/2018 20:38 CLINICAL HISTORY: 53 years Male flank pain, elevated bilirubin COMPARISON: None. TECHNIQUE: Transabdominal grayscale imaging were performed to evaluate the right upper quadrant. FINDINGS: Pancreas is largely obscured by bowel gas. The visualized segments of the aorta are normal in caliber. No acute abdomen evaluate the liver. The IVC is patent. Patent hepatopedal portal vein. Right kidney is unremarkable. The inferior pole is suboptimally seen. No evidence of stones in the gallbladder. Gallbladder wall appears mildly prominent measuring 3.5 mm. No surrounding fluid. IMPRESSION: Limited study Questionable thickening of the gallbladder wall without additional evidence to suggest cholecystitis. If there is continued concern recommend nuclear medicine study
[2018-09-19] MEDS ORDERED: ONDANSETRON HCL INJ/PF 4 MG/2 ML SDV IV PRN (23:10)
[2018-09-19] MEDS ORDERED: MAG HYDROX/AL HYDROX/SIMETH SUSP 30 ML UDCUP PO PRN (23:10)
[2018-09-19] MEDS ORDERED: MAGNESIUM HYDROXIDE SUSP 30 ML UDCUP PO PRN (23:10)
[2018-09-19] MEDS ORDERED: ACETAMINOPHEN 325 MG TABLET PO PRN (23:15)
[2018-09-19] MEDS ORDERED: NICOTINE 21 MG/24 HR PATCH.TD24 TD PRN (23:15)
[2018-09-20] MEDS: METOPROLOL TARTRATE 25 MG TABLET PO SCH ×3 (00:12→21:11)
[2018-09-20] MEDS: FAMOTIDINE 20 MG TABLET PO SCH ×3 (00:13→21:11)
[2018-09-20] MEDS: ZOLPIDEM TARTRATE 5 MG TABLET PO PRN ×2 (00:13→23:32)
[2018-09-20] MEDS: MORPHINE SULFATE 10 MG/ML INJ IV PRN ×6 (00:13→20:11)
[2018-09-20] MEDS ORDERED: DABIGATRAN ETEXILATE 150 MG CAPSULE PO ONE (00:20)
[2018-09-20] MEDS: RINGERS SOLUTION,LACTATED 1,000 ML IV PRN ×4 (01:03→21:12)
[2018-09-20] MEDS: DABIGATRAN ETEXILATE 150 MG CAPSULE PO SCH ×3 (01:06→21:11)
[2018-09-20] MEDS ORDERED: DIAZEPAM INJ 10 MG/2 ML DISP.SYRIN IV PRN (04:57)
--- NOTE | 2018-09-20 05:33 | ADVANCED CARE ---
- Diagnosis (1) Pyelonephritis Diagnosis Current: Yes (2) Intractable pain Diagnosis Current: Yes (3) Chronic atrial fibrillation Diagnosis Current: Yes (4) Chronic systolic (congestive) heart failure Diagnosis Current: Yes (5) Tobacco dependency Diagnosis Current: Yes (6) Alcohol use disorder Diagnosis Current: Yes (7) HTN (hypertension) Diagnosis Current: Yes Attendance: Patient and myself Resuscitation Status: Full Code Discussion: Patient has determined that he would like to remain full CODE STATUS for any cardiac or respiratory arrest that may occur during his hospital course. Additionally he wishes Norman Car to be his designated surrogate medical decision-maker. Care Planning Goals: 1. Patient's resuscitation status will be full code throughout his hospital course. 2. Norman Yoon will be his designated surrogate medical decision-maker. Document(s) Completed: Following the medical record and medical orders via EMR entry: 1. Patient's resuscitation status will be full code throughout his hospital course. 2. Norman Yoon will be his designated surrogate medical decision-maker. Time Spent: 8 minutes
--- NOTE | 2018-09-20 05:34 | PDOC H&P ---
History of Present Illness Admission Date/PCP: 09/20/2018 23:[facility] Patient complains of: Right flank pain History of Present Illness: MAZIN ZIMMER is a 53 year old male who presented to the emergency room with a 1 day history of right flank pain. Patient describes the pain as moderately severe and gradual at onset, but now it is an incredibly severe, constant explosive pressure in his right flank area with radiation into the right upper quadrant of the abdomen. The pain has not been associated with or accompanied by additional signs or symptoms. He denies prior similar episodes and has not identified any aggravating or ameliorating factors for his right flank pain. In the emergency room he was found to have bilateral pyelonephritis by CT evaluation and a urinalysis consistent with urinary tract infection. He has pain in the emergency room remained intractable despite multiple doses of fentanyl and Dilaudid. He was subsequently treated with ceftriaxone intraven ously and admitted to the hospital for further evaluation and treatment. Past Medical History Cardiac Medical History: Reports: Atrial Fibrillation, Congestive Heart Failure, Hyperlipidema, Hypertension Denies: DVT, Myocardial Infarction, Pulmonary Embolism Pulmonary Medical History: Denies: Asthma, Chronic Obstructive Pulmonary Disease (COPD), Sleep Apnea EENT Medical History: Denies: Cataracts, Ears - Hearing aids Neurological Medical History: Denies: Hemorrhagic CVA, Ischemic CVA, Multiple Sclerosis, Seizures Endocrine Medical History: Denies: Diabetes Mellitus Type 1, Diabetes Mellitus Type 2, Hyperthyroidism, Hypothyroidism Renal/ Medical History: Denies: Chronic Kidney Disease, Nephrolithiasis Malignancy Medical History: Reports: None GI Medical History: Denies: Cirrhosis, Crohn's Disease, Gastroesophageal Reflux Disease, Hepatitis, Ulcerative Colitis Musculoskeltal Medical History: Denies: Arthritis, Gout Skin Medical History: Denies: Eczema, Psoriasis Psychiatric Medical History: Reports: Alcohol Dependency, Tobacco Dependency Denies: Depression, Substance Abuse Traumatic Medical History: Reports: Other - multiple rib fractures Hematology: Denies: Anemia, Bleeding Tendencies Infectious Medical History: Reports: None Past Surgical History Past Surgical History: Reports: Cardiac Catheterization, Pacemaker, Tonsillectomy, Other - Ablation for atrial fibrillation. Social History Information Source: Patient Lives with: Alone Smoking Status: Current Every Day Smoker Frequency of Alcohol Use: Heavy Hx Recreational Drug Use: No Drugs: None Hx Prescription Drug Abuse: No - Advance Directive Resuscitation Status: Full Code Surrogate healthcare decision maker:: Norman Zimmer Family History Family History: CAD, Hyperlipidemia, Hypertension, Thyroid Disfunction Parental Family History Reviewed: Yes Children Family History Reviewed: No Sibling(s) Family History Reviewed.: Yes Medication/Allergy Home Medications: Dabigatran Etexilate Mesylate [Pradaxa 150 mg Capsule] 150 mg PO Q12 11/08/16 Metoprolol Tartrate [Lopressor 25 mg Tablet] 12.5 mg PO Q12 11/08/16 Acetaminophen [Tylenol 325 mg Tablet] 650 mg PO Q8HP PRN tablet 11/11/16 Allergies/Adverse Reactions: Penicillins Allergy (Verified 09/19/18 14:53) Review of Systems Constitutional: ABSENT: chills, fever(s) Eyes: ABSENT: visual disturbances, other - Ocular pain Ears: ABSENT: hearing changes, other - Ear pain Nose, Mouth, and Throat: ABSENT: mouth pain, sore throat Cardiovascular: ABSENT: chest pain, palpitations Respiratory: ABSENT: cough, dyspnea Gastrointestinal: PRESENT: as per HPI, abdominal pain - Pain radiating from right flank into right upper quadrant. ABSENT: constipation, diarrhea, nausea, vomiting Genitourinary: PRESENT: as per HPI, other - Right flank pain. ABSENT: difficulty urinating, dysuria, hematuria Musculoskeletal: PRESENT: as per HPI, back pain - Right flank pain. ABSENT: joint swelling, muscle weakness Integumentary: ABSENT: pruritus, rash Neurological: ABSENT: confusion, convulsions, focal weakness, memory loss, syncope Psychiatric: ABSENT: anxiety, depression Endocrine: ABSENT: cold intolerance, heat intolerance Hematologic/Lymphatic: ABSENT: easy bleeding, easy bruising Physical Exam Vital Signs: Temp Pulse Resp BP Pulse Ox 98.2 F 92 20 117/89 H 96 09/19/18 20:16 09/19/18 20:16 09/19/18 20:16 09/19/18 20:16 09/19/18 20:16 Intake & Output 09/17/18 09/18/18 09/19/18 23:59 23:59 23:59 Intake Total 1050 Balance 1050 General appearance: PRESENT: no acute distress, cooperative Head exam: PRESENT: atraumatic, normocephalic Eye exam: ABSENT: conjunctival injection, scleral icterus Ear exam: PRESENT: normal external ear exam. ABSENT: bleeding, drainage Mouth exam: PRESENT: dry mucosa, neck supple Neck exam: ABSENT: thyromegaly - 1, tracheal deviation Respiratory exam: PRESENT: clear to auscultation irasema, symmetrical, unlabored Cardiovascular exam: PRESENT: RRR. ABSENT: clicks, gallop, rubs - Use Pulses: PRESENT: normal radial pulses, normal dorsalis pedis pul GI/Abdominal exam: PRESENT: normal bowel sounds, soft, tenderness - Right flank tenderness on palpation Rectal exam: PRESENT: deferred Extremities exam: ABSENT: joint swelling, pedal edema Musculoskeletal exam: PRESENT: full ROM, normal inspection Neurological exam: PRESENT: alert, oriented to person, oriented to place, oriented to time, oriented to situation, CN II-XII grossly intact. ABSENT: motor sensory deficit Psychiatric exam: PRESENT: appropriate affect, normal mood Skin exam: PRESENT: dry, intact, warm. ABSENT: jaundice, rash, urticaria Results Laboratory Results: 09/19/18 15:30 09/19/18 15:30 09/19/18 09/19/18 09/19/18 15:30 15:30 15:30 WBC 14.4 H RBC 5.04 Hgb 15.3 Hct 44.5 MCV 88 MCH 30.4 MCHC 34.4 RDW 15.7 H Plt Count 183 Seg Neutrophils % 80.9 H Lymphocytes % 8.3 L Monocytes % 8.5 Eosinophils % 1.5 Basophils % 0.8 Absolute Neutrophils 11.7 H Absolute Lymphocytes 1.2 Absolute Monocytes 1.2 Absolute Eosinophils 0.2 Absolute Basophils 0.1 Sodium 137.1 Potassium 4.2 Chloride 95 L Carbon Dioxide 30 Anion Gap 12 BUN 16 Creatinine 0.85 Est GFR ( Amer) > 60 Est GFR (Non-Af Amer) > 60 Glucose 114 H Calcium 9.7 Total Bilirubin 2.3 H AST 14 L ALT 16 L Alkaline Phosphatase 76 Total Protein 7.5 Albumin 4.6 Lipase Urine Color LUIS Urine Appearance SLIGHTLY-CLOUDY Urine pH 5.0 Ur Specific [place] 1.028 Urine Protein 30 H Urine Glucose (UA) NEGATIVE Urine Ketones TRACE H Urine Blood NEGATIVE Urine Nitrite NEGATIVE Ur Leukocyte Esterase SMALL H Urine WBC (Auto) 27 Urine RBC (Auto) 0 09/19/18 20:02 WBC RBC Hgb Hct MCV MCH MCHC RDW Plt Count Seg Neutrophils % Lymphocytes % Monocytes % Eosinophils % Basophils % Absolute Neutrophils Absolute Lymphocytes Absolute Monocytes Absolute Eosinophils Absolute Basophils Sodium Potassium Chloride Carbon Dioxide Anion Gap BUN Creatinine Est GFR ( Amer) Est GFR (Non-Af Amer) Glucose Calcium Total Bilirubin AST ALT Alkaline Phosphatase Total Protein Albumin Lipase 25.1 Urine Color Urine Appearance Urine pH Ur Specific [place] Urine Protein Urine Glucose (UA) Urine Ketones Urine Blood Urine Nitrite Ur Leukocyte Esterase Urine WBC (Auto) Urine RBC (Auto) Impressions: Chest X-Ray 09/19/18 15:21 IMPRESSION: Increased bilateral basilar interstitial markings -subsegmental atelectasis. Irregular appearance of the posterior right 7th and 8th ribs is suggested compared with the prior study, uncertain etiology. Consider additional evaluation. Abdomen/Pelvis CT 09/19/18 17:46 IMPRESSION: Mild bilateral perinephric stranding, nonspecific.No calcified stones. No hydronephrosis or hydroureter. Abdomen Ultrasound 09/19/18 20:38 IMPRESSION: Limited study Questionable thickening of the gallbladder wall without additional evidence to suggest cholecystitis. If there is continued concern recommend nuclear medicine study Assessment and Plan - Diagnosis (1) Pyelonephritis Is this a current diagnosis for this admission?: Yes Plan: Patient is followed for is to be treated with intravenous antibiotics utilizing Rocephin 1 g IV every 24 hours. He will receive symptomatic and supportive ca res as needed. The patient was pyelonephritis will be treated with morphine sulfate 3 to 7.5 mg IV every 2 hours on a as needed basis using a sliding scale for pain. Daily CBCs, metabolic profiles and magnesium levels will be obtained as part of following the course of the patient's acute pyelonephritis. (2) Intractable pain Is this a current diagnosis for this admission?: Yes Plan: Patient's intractable pain to be dealt with utilizing morphine sulfate 3 to 7.5 mg IV every 2 hours on a as needed basis utilizing a sliding scale for pain. (3) Chronic atrial fibrillation Is this a current diagnosis for this admission?: Yes Plan: Patient will be continued on his usual medications for chronic atrial fibrillation including his usual anticoagulants. He will be monitored throughout his hospital course. Further evaluation treatment will be on an as-needed basis. (4) Chronic systolic (congestive) heart failure Is this a current diagnosis for this admission?: Yes Plan: Patient will be maintained on his current medications for congestive heart failure. He will be monitored on a regular basis via examination and further evaluation and treatment will be on an as-needed basis. (5) Tobacco dependency Is this a current diagnosis for this admission?: Yes Plan: Smoking cessation is advised and counseled briefly. Nicotine replacement patch will be available for the patient's use. (6) Alcohol use disorder Is this a current diagnosis for this admission?: Yes Plan: Patient will be observed closely for any signs of significant alcohol withdrawal during his hospital course. Valium 10 mg IV every hour PRN basis for severe delirium tremens will be available. Valium 10 mg p.o. every 6 hours will be given throughout the hospital course. (7) HTN (hypertension) Qualifiers: Hypertension type: essential hypertension Qualified Code(s): I10 - Essential (primary) hypertension Is this a current diagnosis for this admission?: Yes Plan: Patient be continued on his current antihypertensive regiment. His blood pressure monitored frequently throughout his hospital course and changes will be made only as required. - Time Time Spent with patient: 25-34 minutes Smoking Cessation Education: 3 to 10 minutes Medications reviewed and adjusted accordingly: Yes Anticipated discharge: Home - Inpatient Certification Based on my medical assessment, after consideration of the patient's co morbidities, presenting symptoms, or acuity I expect that the services needed warrant INPATIENT care.: Yes I certify that my determination is in accordance with my understanding of Medicare's requirements for reasonable and necessary INPATIENT services [42 CFR 412.3e].: Yes Medical Necessity: Significant Comorbidiites Make Outpatient Treatment Too Risky, Need Close Monitoring Due to Risk of Patient Decompensation, Need For IV Fluids, Need for Pain Control, Need for IV Antibiotics, Risk of Complication if Not Cared For in Hospital
[2018-09-20] MEDS ORDERED: DIAZEPAM 5 MG TABLET PO SCH (06:00)
[2018-09-20 07:19] LABS: ABSOLUTE BASOPHILS # (AUTO) 0.1 10^3/uL (0.0-0.2); ABSOLUTE EOSINOPHILS # (AUTO) 0.2 10^3/uL (0.0-0.6); ABSOLUTE LYMPHOCYTES (AUTO) 1.5 10^3/uL (0.5-4.7); ABSOLUTE MONOCYTES (AUTO) 1.2 10^3/uL (0.1-1.4); ABSOLUTE NEUT (AUTO) 10.1 10^3/uL (1.7-8.2); BASOPHILS % (AUTO) 0.9 % (0-2); EOSINOPHILS % (AUTO) 1.5 % (0-6); HEMATOCRIT 42.4 % (37.9-51.0); HEMOGLOBIN 14.2 g/dL (13.5-17.0); LYMPHOCYTES % (AUTO) 11.7 % (13-45); MEAN CORPUSCULAR HEMOGLOBIN 29.9 pg (27.0-33.4); MEAN CORPUSCULAR HGB CONC 33.4 g/dL (32.0-36.0); MEAN CORPUSCULAR VOLUME 90 fl (80-97); MONOCYTES % (AUTO) 9.3 % (3-13); PLATELET COUNT 158 10^3/uL (150-450); RED BLOOD COUNT 4.73 10^6/uL (4.35-5.55); RED CELL DISTRIBUTION WIDTH 15.8 % (11.5-14.0); SEGMENTED NEUTROPHILS % (AUTO) 76.6 % (42-78); TOTAL CELLS COUNTED % (AUTO) 100 %; WHITE BLOOD COUNT 13.2 10^3/uL (4.0-10.5)
[2018-09-20 07:50] LABS: ANION GAP 11 (5-19); BLOOD UREA NITROGEN 16 mg/dL (7-20); CALCIUM 8.7 mg/dL (8.4-10.2); CARBON DIOXIDE 27 mmol/L (22-30); CHLORIDE 95 mmol/L (98-107); GLUCOSE 117 mg/dL (75-110); POTASSIUM 4.1 mmol/L (3.6-5.0)
[2018-09-20] MEDS: DOCUSATE SODIUM 100 MG CAPSULE PO SCH ×2 (09:08→17:14)
[2018-09-20] MEDS ORDERED: CEFTRIAXONE 1 GM/D5W RTU 1 GM/50 ML RTUPB IV SCH (10:00)
[2018-09-20] MEDS ORDERED: LORAZEPAM INJ 2 MG/1 ML VIAL IV PRN (10:43)
[2018-09-20] MEDS ORDERED: OXYCODONE-ACETAMINOPHEN 5-325 MG TABLET PO PRN (10:50)
[2018-09-20] MEDS ORDERED: MORPHINE SULFATE 10 MG/ML INJ IV PRN (10:52)
--- NOTE | 2018-09-20 14:35 | PDOC PROGRESS REPORT ---
Subjective Progress Note for:: 09/20/18 Subjective:: MAZIN ZIMMER is a 53 year old male who presented to the emergency room with a 1 day history of right flank pain. Patient describes the pain as moderately severe and gradual at onset, but now it is an incredibly severe, constant explosive pressure in his right flank area with radiation into the right upper quadrant of the abdomen. The pain has not been associated with or accompanied by additional signs or symptoms. He denies prior similar episodes and has not identified any aggravating or ameliorating factors for his right flank pain. In the emergency room he was found to have bilateral pyelonephritis by CT evaluation and a urinalysis consistent with urinary tract infection. He has pain in the emergency room remained intractable despite multiple doses of fentanyl and Dilaudid. He was subsequently treated with ceftriaxone intravenously and admitted to the hospital for further evaluation and treatment. 09/20/2018. No acute events overnight. Patient complaining of severe pain on the right flank, sharp, constant, 10/10, denies any shortness of breath, fever, chills, nausea, vomiting, diarrhea, constipation or any urinary symptoms. Reason For Visit: ACUTE PYELONEPHRITIS WITH INTRACTABLE PAIN Physical Exam Vital Signs: Temp Pulse Resp BP Pulse Ox 97.9 F 95 20 108/63 92 09/20/18 11:00 09/20/18 11:00 09/20/18 11:00 09/20/18 11:00 09/20/18 11:00 Intake & Output 09/19/18 09/20/18 09/21/18 06:59 06:59 06:59 Intake Total 2080 600 Output Total 200 275 Balance 1880 325 General appearance: PRESENT: obese Head exam: PRESENT: atraumatic, normocephalic Neck exam: ABSENT: carotid bruit, JVD, lymphadenopathy, thyromegaly Respiratory exam: PRESENT: clear to auscultation irasema. ABSENT: rales, rhonchi, wheezes Cardiovascular exam: PRESENT: RRR. ABSENT: diastolic murmur, rubs, systolic m urmur GI/Abdominal exam: PRESENT: normal bowel sounds, soft, tenderness - Right CVA TTP.. ABSENT: distended, guarding, mass, organolmegaly, rebound Extremities exam: PRESENT: other - Bilateral lower extremity stasis dermatitis. Neurological exam: PRESENT: alert, awake, oriented to person, oriented to place, oriented to time, oriented to situation, CN II-XII grossly intact. ABSENT: motor sensory deficit Results Laboratory Results: 09/20/18 06:58 09/20/18 06:58 09/19/18 09/19/18 09/19/18 15:30 15:30 15:30 WBC 14.4 H RBC 5.04 Hgb 15.3 Hct 44.5 MCV 88 MCH 30.4 MCHC 34.4 RDW 15.7 H Plt Count 183 Seg Neutrophils % 80.9 H Lymphocytes % 8.3 L Monocytes % 8.5 Eosinophils % 1.5 Basophils % 0.8 Absolute Neutrophils 11.7 H Absolute Lymphocytes 1.2 Absolute Monocytes 1.2 Absolute Eosinophils 0.2 Absolute Basophils 0.1 Sodium 137.1 Potassium 4.2 Chloride 95 L Carbon Dioxide 30 Anion Gap 12 BUN 16 Creatinine 0.85 Est GFR ( Amer) > 60 Est GFR (Non-Af Amer) > 60 Glucose 114 H Lactic Acid Calcium 9.7 Magnesium Total Bilirubin 2.3 H AST 14 L ALT 16 L Alkaline Phosphatase 76 Total Protein 7.5 Albumin 4.6 Lipase Urine Color LUIS Urine Appearance SLIGHTLY-CLOUDY Urine pH 5.0 Ur Specific [place] 1.028 Urine Protein 30 H Urine Glucose (UA) NEGATIVE Urine Ketones TRACE H Urine Blood NEGATIVE Urine Nitrite NEGATIVE Ur Leukocyte Esterase SMALL H Urine WBC (Auto) 27 Urine RBC (Auto) 0 09/19/18 09/20/18 09/20/18 20:02 00:50 06:58 WBC RBC Hgb Hct MCV MCH MCHC RDW Plt Count Seg Neutrophils % Lymphocytes % Monocytes % Eosinophils % Basophils % Absolute Neutrophils Absolute Lymphocytes Absolute Monocytes Absolute Eosinophils Absolute Basophils Sodium Potassium Chloride Carbon Dioxide Anion Gap BUN Creatinine Est GFR ( Amer) Est GFR (Non-Af Amer) Glucose Lactic Acid 0.9 1.0 Calcium Magnesium Total Bilirubin AST ALT Alkaline Phosphatase Total Protein Albumin Lipase 25.1 Urine Color Urine Appearance Urine pH Ur Specific [place] Urine Protein Urine Glucose (UA) Urine Ketones Urine Blood Urine Nitrite Ur Leukocyte Esterase Urine WBC (Auto) Urine RBC (Auto) 09/20/18 09/20/18 09/20/18 06:58 06:58 09:56 WBC 13.2 H RBC 4.73 Hgb 14.2 Hct 42.4 MCV 90 MCH 29.9 MCHC 33.4 RDW 15.8 H Plt Count 158 Seg Neutrophils % 76.6 Lymphocytes % 11.7 L Monocytes % 9.3 Eosinophils % 1.5 Basophils % 0.9 Absolute Neutrophils 10.1 H Absolute Lymphocytes 1.5 Absolute Monocytes 1.2 Absolute Eosinophils 0.2 Absolute Basophils 0.1 Sodium 133.0 L Potassium 4.1 Chloride 95 L Carbon Dioxide 27 Anion Gap 11 BUN 16 Creatinine 0.83 Est GFR ( Amer) > 60 Est GFR (Non-Af Amer) > 60 Glucose 117 H Lactic Acid 1.3 Calcium 8.7 Magnesium 1.7 Total Bilirubin AST ALT Alkaline Phosphatase Total Protein Albumin Lipase Urine Color Urine Appearance Urine pH Ur Specific [place] Urine Protein Urine Glucose (UA) Urine Ketones Urine Blood Urine Nitrite Ur Leukocyte Esterase Urine WBC (Auto) Urine RBC (Auto) Impressions: Chest X-Ray 09/19/18 15:21 IMPRESSION: Increased bilateral basilar interstitial markings -subsegmental atelectasis. Irregular appearance of the posterior right 7th and 8th ribs is suggested compared with the prior study, uncertain etiology. Consider additional evaluation. Abdomen/Pelvis CT 09/19/18 17:46 IMPRESSION: Mild bilateral perinephric stranding, nonspecific.No calcified stones. No hydronephrosis or hydroureter. Abdomen Ultrasound 09/19/18 20:38 IMPRESSION: Limited study Questionable thickening of the gallbladder wall without additional evidence to suggest cholecystitis. If there is continued concern recommend nuclear medicine study Assessment and Plan - Diagnosis (1) Pyelonephritis Is this a current diagnosis for this admission?: Yes Plan: Likely due to gram-negative rods including E. coli. Endorses history of DARCIE, denies any history of urogenital instrumentation or nephrolithiasis. Day 2 IV antibiotics. Day 2 IV ceftriaxone. 6 019. Urine and blood culture pending. Continue empiric IV antibiotics, follow-up urine and blood culture. (2) Chronic systolic (congestive) heart failure Is this a current diagnosis for this admission?: Yes Plan: Compensated. He has history of CAD. Chronic A. fib. Pacemaker in place. Continue cardiac diet, DANIEL, beta-blockers, statins, telemetry, cardiac diet, monitor vitals, monitor electrolytes and replete as needed. (3) Atrial fibrillation Qualifiers: Atrial fibrillation type: permanent Qualified Code(s): I48.2 - Chronic atrial fibrillation Is this a current diagnosis for this admission?: Yes Plan: Rate controlled. Anticoagulated. Continue Lovenox, beta-blockers. (4) Tobacco dependency Is this a current diagnosis for this admission?: Yes Plan: Consult on quitting. NicoDerm patch available. (5) Alcohol use disorder Is this a current diagnosis for this admission?: Yes Plan: Does not seem to be withdrawing at this moment. Monitor for DT. Continue benzos as needed, folic acid and thiamine.
[2018-09-20] MEDS: FOLIC ACID/VITAMIN B COMP W-C CAPSULE PO SCH (15:29)
[2018-09-20] MEDS: CEFTRIAXONE SODIUM 1,000 MG in DEXTROSE 5%-WATER 50 ML IV SCH (17:11)
[2018-09-21] MEDS: MORPHINE SULFATE 10 MG/ML INJ IV PRN ×4 (00:37→20:18)
[2018-09-21 05:24] LABS: ABSOLUTE BASOPHILS # (AUTO) 0.1 10^3/uL (0.0-0.2); ABSOLUTE EOSINOPHILS # (AUTO) 0.2 10^3/uL (0.0-0.6); ABSOLUTE LYMPHOCYTES (AUTO) 1.5 10^3/uL (0.5-4.7); ABSOLUTE MONOCYTES (AUTO) 1.1 10^3/uL (0.1-1.4); ABSOLUTE NEUT (AUTO) 6.9 10^3/uL (1.7-8.2); BASOPHILS % (AUTO) 0.8 % (0-2); HEMOGLOBIN 12.7 g/dL (13.5-17.0); MEAN CORPUSCULAR HEMOGLOBIN 30.7 pg (27.0-33.4); MEAN CORPUSCULAR HGB CONC 34.3 g/dL (32.0-36.0); MEAN CORPUSCULAR VOLUME 89 fl (80-97); MONOCYTES % (AUTO) 11.1 % (3-13); PLATELET COUNT 130 10^3/uL (150-450); RED BLOOD COUNT 4.15 10^6/uL (4.35-5.55); RED CELL DISTRIBUTION WIDTH 15.4 % (11.5-14.0); SEGMENTED NEUTROPHILS % (AUTO) 71.1 % (42-78); TOTAL CELLS COUNTED % (AUTO) 100 %; WHITE BLOOD COUNT 9.7 10^3/uL (4.0-10.5)
[2018-09-21 05:58] LABS: ALANINE AMINOTRANSFERASE 14 U/L (21-72); ALKALINE PHOSPHATASE 64 U/L (38-126); ANION GAP 7 (5-19); ASPARTATE AMINO TRANSFERASE 16 U/L (17-59); BILIRUBIN,DIRECT 0.4 mg/dL (0.0-0.4); BLOOD UREA NITROGEN 17 mg/dL (7-20); CALCIUM 8.4 mg/dL (8.4-10.2); CARBON DIOXIDE 28 mmol/L (22-30); CHLORIDE 97 mmol/L (98-107); GLUCOSE 105 mg/dL (75-110); POTASSIUM 4.6 mmol/L (3.6-5.0); SODIUM 131.5 mmol/L (137-145); TOTAL PROTEIN 5.4 g/dL (6.3-8.2)
[2018-09-21] MEDS: RINGERS SOLUTION,LACTATED 1,000 ML IV PRN (06:12)
[2018-09-21] MEDS ORDERED: DEXTROSE 5%-NORMAL SALINE 1,000 ML IV PRN (08:10)
[2018-09-21] MEDS: NORMAL SALINE 1000 ML 1,000 ML IV PRN ×2 (08:36→17:19)
--- NOTE | 2018-09-21 11:05 | PDOC PROGRESS REPORT ---
Subjective Progress Note for:: 09/21/18 Subjective:: MAZIN ZIMMER is a 53 year old male who presented to the emergency room with a 1 day history of right flank pain. Patient describes the pain as moderately severe and gradual at onset, but now it is an incredibly severe, constant explosive pressure in his right flank area with radiation into the right upper quadrant of the abdomen. The pain has not been associated with or accompanied by additional signs or symptoms. He denies prior similar episodes and has not identified any aggravating or ameliorating factors for his right flank pain. In the emergency room he was found to have bilateral pyelonephritis by CT evaluation and a urinalysis consistent with urinary tract infection. He has pain in the emergency room remained intractable despite multiple doses of fentanyl and Dilaudid. He was subsequently treated with ceftriaxone intravenously and admitted to the hospital for further evaluation and treatment. 09/20/2018. No acute events overnight. Patient complaining of severe pain on the right flank, sharp, constant, 10/10, denies any shortness of breath, fever, chills, nausea, vomiting, diarrhea, constipation or any urinary symptoms. 09/21/2018. No acute events overnight. Abdominal pain improving yesterday, denies any nausea, vomiting, diarrhea, constipation or any urinary symptoms. Reason For Visit: ACUTE PYELONEPHRITIS WITH INTRACTABLE PAIN Physical Exam Vital Signs: Temp Pulse Resp BP Pulse Ox 99.7 F 89 18 106/72 92 09/21/18 00:25 09/21/18 00:25 09/21/18 00:25 09/21/18 00:25 09/21/18 00:25 Intake & Output 09/20/18 09/21/18 09/22/18 06:59 06:59 06:59 Intake Total 2080 4785 600 Output Total 200 975 Balance 1880 3810 600 Weight 95.5 kg General appearance: PRESENT: no acute distress, obese, well-developed, well- nourished Head exam: PRESENT: atraumatic, normocephalic Eye exam: PRESENT: conjunctiva pink, EOMI, PERRLA. ABSENT: scleral icterus Ear exam: PRESENT: normal external ear exam Mouth exam: PRESENT: moist, tongue midline Neck exam: ABSENT: carotid bruit, JVD, lymphadenopathy, thyromegaly Respiratory exam: PRESENT: clear to auscultation iraseam. ABSENT: rales, rhonchi, wheezes Cardiovascular exam: PRESENT: RRR. ABSENT: diastolic murmur, rubs, systolic murmur Pulses: PRESENT: normal dorsalis pedis pul Vascular exam: PRESENT: normal capillary refill GI/Abdominal exam: PRESENT: normal bowel sounds, soft, other - Right CVA tenderness.. ABSENT: distended, guarding, mass, organolmegaly, rebound, tenderness Rectal exam: PRESENT: deferred Extremities exam: PRESENT: full ROM. ABSENT: calf tenderness, clubbing, pedal edema Neurological exam: PRESENT: alert, awake, oriented to person, oriented to place, oriented to time, oriented to situation, CN II-XII grossly intact. ABSENT: motor sensory deficit Psychiatric exam: PRESENT: appropriate affect, normal mood. ABSENT: homicidal ideation, suicidal ideation Skin exam: PRESENT: dry, intact, warm. ABSENT: cyanosis, rash Results Laboratory Results: 09/21/18 04:47 09/21/18 04:47 09/21/18 09/21/18 09/21/18 04:47 04:47 04:47 WBC 9.7 RBC 4.15 L Hgb 12.7 L Hct 37.0 L MCV 89 MCH 30.7 MCHC 34.3 RDW 15.4 H Plt Count 130 L Seg Neutrophils % 71.1 Lymphocytes % 15.0 Monocytes % 11.1 Eosinophils % 2.0 Basophils % 0.8 Absolute Neutrophils 6.9 Absolute Lymphocytes 1.5 Absolute Monocytes 1.1 Absolute Eosinophils 0.2 Absolute Basophils 0.1 Sodium 131.5 L Potassium 4.6 Chloride 97 L Carbon Dioxide 28 Anion Gap 7 BUN 17 Creatinine 0.88 Est GFR ( Amer) > 60 Est GFR (Non-Af Amer) > 60 Glucose 105 Calcium 8.4 Magnesium 1.7 Total Bilirubin 1.0 AST 16 L ALT 14 L Alkaline Phosphatase 64 Total Protein 5.4 L Albumin 3.0 L Impressions: Chest X-Ray 09/19/18 15:21 IMPRESSION: Increased bilateral basilar interstitial markings -subsegmental atelectasis. Irregular appearance of the posterior right 7th and 8th ribs is suggested compared with the prior study, uncertain etiology. Consider additional evaluation. Abdomen/Pelvis CT 09/19/18 17:46 IMPRESSION: Mild bilateral perinephric stranding, nonspecific.No calcified st ones. No hydronephrosis or hydroureter. Abdomen Ultrasound 09/19/18 20:38 IMPRESSION: Limited study Questionable thickening of the gallbladder wall without additional evidence to suggest cholecystitis. If there is continued concern recommend nuclear medicine study Assessment and Plan - Diagnosis (1) Pyelonephritis Is this a current diagnosis for this admission?: Yes Plan: Likely due to gram-negative rods including E. coli. Endorses history of DARCIE, denies any history of urogenital instrumentation or nephrolithiasis. Day 3 IV antibiotics. Day 3 IV ceftriaxone. Urine and blood culture pending. Continue empiric IV antibiotics, follow-up urine and blood culture. (2) Chronic systolic (congestive) heart failure Is this a current diagnosis for this admission?: Yes Plan: Compensated. He has history of CAD. Chronic A. fib. Pacemaker in place. Continue cardiac diet, DANIEL, beta-blockers, statins, telemetry, cardiac diet, monitor vitals, monitor electrolytes and replete as needed. (3) Atrial fibrillation Qualifiers: Atrial fibrillation type: permanent Qualified Code(s): I48.2 - Chronic atrial fibrillation Is this a current diagnosis for this admission?: Yes Plan: Rate controlled. Anticoagulated. Continue Lovenox, beta-blockers. (4) Tobacco dependency Is this a current diagnosis for this admission?: Yes Plan: Consult on quitting. NicoDerm patch available. (5) Alcohol use disorder Is this a current diagnosis for this admission?: Yes Plan: Does not seem to be withdrawing at this moment. Monitor for DT. Continue benzos as needed, folic acid and thiamine.
[2018-09-21] MEDS ORDERED: ONDANSETRON HCL INJ/PF 4 MG/2 ML SDV IV PRN (11:30)
[2018-09-21] MEDS: FAMOTIDINE 20 MG TABLET PO SCH ×2 (12:47→21:39)
[2018-09-21] MEDS: DOCUSATE SODIUM 100 MG CAPSULE PO SCH ×2 (12:47→17:08)
[2018-09-21] MEDS: METOPROLOL TARTRATE 25 MG TABLET PO SCH (13:44)
[2018-09-21] MEDS: DABIGATRAN ETEXILATE 150 MG CAPSULE PO SCH (13:45)
[2018-09-21] MEDS: FOLIC ACID/VITAMIN B COMP W-C CAPSULE PO SCH (15:27)
[2018-09-21] MEDS: CEFTRIAXONE SODIUM 1,000 MG in DEXTROSE 5%-WATER 50 ML IV SCH (17:09)
[2018-09-21] MEDS: APIXABAN 5 MG TABLET PO SCH (17:09)
[2018-09-22 05:13] LABS: ABSOLUTE BASOPHILS # (AUTO) 0.1 10^3/uL (0.0-0.2); ABSOLUTE EOSINOPHILS # (AUTO) 0.1 10^3/uL (0.0-0.6); ABSOLUTE LYMPHOCYTES (AUTO) 1.1 10^3/uL (0.5-4.7); ABSOLUTE MONOCYTES (AUTO) 1.1 10^3/uL (0.1-1.4); ABSOLUTE NEUT (AUTO) 7.6 10^3/uL (1.7-8.2); BASOPHILS % (AUTO) 0.8 % (0-2); EOSINOPHILS % (AUTO) 1.4 % (0-6); HEMATOCRIT 36.6 % (37.9-51.0); HEMOGLOBIN 12.7 g/dL (13.5-17.0); LYMPHOCYTES % (AUTO) 10.6 % (13-45); MEAN CORPUSCULAR HEMOGLOBIN 30.6 pg (27.0-33.4); MEAN CORPUSCULAR HGB CONC 34.7 g/dL (32.0-36.0); MEAN CORPUSCULAR VOLUME 88 fl (80-97); MONOCYTES % (AUTO) 11.1 % (3-13); PLATELET COUNT 135 10^3/uL (150-450); RED BLOOD COUNT 4.15 10^6/uL (4.35-5.55); RED CELL DISTRIBUTION WIDTH 15.3 % (11.5-14.0); SEGMENTED NEUTROPHILS % (AUTO) 76.1 % (42-78); TOTAL CELLS COUNTED % (AUTO) 100 %
[2018-09-22] MEDS: MORPHINE SULFATE 10 MG/ML INJ IV PRN ×2 (05:23→21:14)
[2018-09-22] MEDS: NORMAL SALINE 1000 ML 1,000 ML IV PRN (05:23)
[2018-09-22 05:35] LABS: ALANINE AMINOTRANSFERASE 16 U/L (21-72); ALBUMIN 3.1 g/dL (3.5-5.0); ALKALINE PHOSPHATASE 77 U/L (38-126); ANION GAP 7 (5-19); ASPARTATE AMINO TRANSFERASE 16 U/L (17-59); BILIRUBIN,DIRECT 0.5 mg/dL (0.0-0.4); BILIRUBIN,TOTAL 1.4 mg/dL (0.2-1.3); BLOOD UREA NITROGEN 12 mg/dL (7-20); CALCIUM 8.3 mg/dL (8.4-10.2); CARBON DIOXIDE 24 mmol/L (22-30); CHLORIDE 98 mmol/L (98-107); GLUCOSE 98 mg/dL (75-110); POTASSIUM 4.1 mmol/L (3.6-5.0); SODIUM 128.6 mmol/L (137-145); TOTAL PROTEIN 5.5 g/dL (6.3-8.2)
[2018-09-22] MEDS: METOPROLOL SUCCINATE 50 MG TAB.SR.24H PO SCH (09:18)
[2018-09-22] MEDS: FAMOTIDINE 20 MG TABLET PO SCH ×2 (09:19→21:14)
[2018-09-22] MEDS: APIXABAN 5 MG TABLET PO SCH ×2 (09:19→17:28)
[2018-09-22] MEDS: DOCUSATE SODIUM 100 MG CAPSULE PO SCH ×2 (09:19→17:28)
--- NOTE | 2018-09-22 15:01 | PDOC PROGRESS REPORT ---
Subjective Progress Note for:: 09/22/18 Subjective:: MAZIN ZIMMER is a 53 year old male who presented to the emergency room with a 1 day history of right flank pain. Patient describes the pain as moderately severe and gradual at onset, but now it is an incredibly severe, constant explosive pressure in his right flank area with radiation into the right upper quadrant of the abdomen. The pain has not been associated with or accompanied by additional signs or symptoms. He denies prior similar episodes and has not identified any aggravating or ameliorating factors for his right flank pain. In the emergency room he was found to have bilateral pyelonephritis by CT evaluation and a urinalysis consistent with urinary tract infection. He has pain in the emergency room remained intractable despite multiple doses of fentanyl and Dilaudid. He was subsequently treated with ceftriaxone intravenously and admitted to the hospital for further evaluation and treatment. 09/20/2018. No acute events overnight. Patient complaining of severe pain on the right flank, sharp, constant, 10/10, denies any shortness of breath, fever, chills, nausea, vomiting, diarrhea, constipation or any urinary symptoms. 09/21/2018. No acute events overnight. Abdominal pain improving yesterday, denies any nausea, vomiting, diarrhea, constipation or any urinary symptoms. 09/22/2018. No acute events overnight, no CVA tenderness improved, gets sharp pain once a while, and has been drinking excessive amount of water as he is hyp onatremic, Denies any chest pain, shortness of breath, nausea, vomiting, constipation or any urinary symptoms. Reason For Visit: ACUTE PYELONEPHRITIS WITH INTRACTABLE PAIN Physical Exam Vital Signs: Temp Pulse Resp BP Pulse Ox 98.2 F 74 20 117/91 H 94 09/22/18 12:00 09/22/18 12:00 09/22/18 12:00 09/22/18 12:00 09/22/18 12:00 Intake & Output 09/21/18 09/22/18 09/23/18 06:59 06:59 06:59 Intake Total 4785 3708 420 Output Total 975 1425 Balance 3810 2283 420 Weight 95.5 kg 96.1 kg General appearance: PRESENT: no acute distress, obese, well-developed, well- nourished Head exam: PRESENT: atraumatic, normocephalic Respiratory exam: PRESENT: clear to auscultation irasema. ABSENT: rales, rhonchi, wheezes Cardiovascular exam: PRESENT: RRR. ABSENT: diastolic murmur, rubs, systolic murmur GI/Abdominal exam: PRESENT: normal bowel sounds, tenderness - Diffuse. ABSENT: distended, guarding, mass, organolmegaly, rebound Neurological exam: PRESENT: alert, awake, oriented to person, oriented to place, oriented to time, oriented to situation, CN II-XII grossly intact. ABSENT: motor sensory deficit Skin exam: PRESENT: jaundice Results Laboratory Results: 09/22/18 04:34 09/22/18 04:34 09/22/18 09/22/18 04:34 04:34 WBC 10.0 RBC 4.15 L Hgb 12.7 L Hct 36.6 L MCV 88 MCH 30.6 MCHC 34.7 RDW 15.3 H Plt Count 135 L Seg Neutrophils % 76.1 Lymphocytes % 10.6 L Monocytes % 11.1 Eosinophils % 1.4 Basophils % 0.8 Absolute Neutrophils 7.6 Absolute Lymphocytes 1.1 Absolute Monocytes 1.1 Absolute Eosinophils 0.1 Absolute Basophils 0.1 Sodium 128.6 L Potassium 4.1 Chloride 98 Carbon Dioxide 24 Anion Gap 7 BUN 12 Creatinine 0.70 Est GFR ( Amer) > 60 Est GFR (Non-Af Amer) > 60 Glucose 98 Calcium 8.3 L Magnesium 1.6 Total Bilirubin 1.4 H AST 16 L ALT 16 L Alkaline Phosphatase 77 Total Protein 5.5 L Albumin 3.1 L 09/19/18 15:30 Clean Catch Midstream Urine Culture - Final Mixed Urogenital Inna Impressions: Chest X-Ray 09/19/18 15:21 IMPRESSION: Increased bilateral basilar interstitial markings -subsegmental atelectasis. Irregular appearance of the posterior right 7th and 8th ribs is suggested compared with the prior study, uncertain etiology. Consider additional evaluation. Abdomen/Pelvis CT 09/19/18 17:46 IMPRESSION: Mild bilateral perinephric stranding, nonspecific.No calcified stones. No hydronephrosis or hydroureter. Abdomen Ultrasound 09/19/18 20:38 IMPRESSION: Limited study Questionable thickening of the gallbladder wall without additional evidence to suggest cholecystitis. If there is continued concern recommend nuclear medicine study Assessment and Plan - Diagnosis (1) Pyelonephritis Is this a current diagnosis for this admission?: Yes Plan: Likely due to gram-negative rods including E. coli. Endorses history of DARCIE, denies any history of urogenital instrumentation or nephrolithiasis. Day 4 IV antibiotics. Day 4 IV ceftriaxone. Cultures no growth so far. Continue empiric IV antibiotics, follow-up urine and blood culture. We will switch to p.o. antibiotics tomorrow and DC home if no acute events overnight. (2) Hyponatremia Is this a current diagnosis for this admission?: Yes Plan: Most likely due to excessive free water intake. Patient has been drinking excessive amount of water as being diagnosed with pyelonephritis. Patient advised to decrease free water intake, DC IV fluids. Monitor for seizures. Repeat tomorrow. If sodium within normal limits will DC home. (3) Chronic systolic (congestive) heart failure Is this a current diagnosis for this admission?: Yes Plan: Compensated. He has history of CAD. Chronic A. fib. Pacemaker in place. Continue cardiac diet, DANIEL, beta-blockers, statins, telemetry, cardiac diet, monitor vitals, monitor electrolytes and replete as needed. (4) Atrial fibrillation Qualifiers: Atrial fibrillation type: permanent Qualified Code(s): I48.2 - Chronic atrial fibrillation Is this a current diagnosis for this admission?: Yes Plan: Rate controlled. Anticoagulated. Continue Lovenox, beta-blockers. (5) Tobacco dependency Is this a current diagnosis for this admission?: Yes Plan: Consult on quitting. NicoDerm patch available. (6) Alcohol use disorder Is this a current diagnosis for this admission?: Yes Plan: Does not seem to be withdrawing at this moment. Monitor for DT. Continue benzos as needed, folic acid and thiamine.
[2018-09-22] MEDS: CEFTRIAXONE SODIUM 1,000 MG in DEXTROSE 5%-WATER 50 ML IV SCH (17:28)
[2018-09-22] MEDS: FOLIC ACID/VITAMIN B COMP W-C CAPSULE PO SCH (17:28)
[2018-09-23 06:19] LABS: ANION GAP 10 (5-19); BLOOD UREA NITROGEN 12 mg/dL (7-20); CALCIUM 8.4 mg/dL (8.4-10.2); CARBON DIOXIDE 24 mmol/L (22-30); CHLORIDE 99 mmol/L (98-107); GLUCOSE 101 mg/dL (75-110); POTASSIUM 4.4 mmol/L (3.6-5.0); SODIUM 132.5 mmol/L (137-145)
[2018-09-23] MEDS ORDERED: FUROSEMIDE INJ/PF 20 MG/2 ML SDV IV ONE (07:36)
[2018-09-23] MEDS: FAMOTIDINE 20 MG TABLET PO SCH (10:19)
[2018-09-23] MEDS: METOPROLOL SUCCINATE 50 MG TAB.SR.24H PO SCH (10:19)
[2018-09-23] MEDS: APIXABAN 5 MG TABLET PO SCH (10:19)
[2018-09-23] MEDS: DOCUSATE SODIUM 100 MG CAPSULE PO SCH (10:20)
[2018-09-23 13:35] LABS: ANION GAP 11 (5-19); BLOOD UREA NITROGEN 11 mg/dL (7-20); CALCIUM 8.9 mg/dL (8.4-10.2); CARBON DIOXIDE 26 mmol/L (22-30); CHLORIDE 97 mmol/L (98-107); GLUCOSE 170 mg/dL (75-110); POTASSIUM 4.4 mmol/L (3.6-5.0); SODIUM 133.6 mmol/L (137-145)
[2018-09-23 14:21] VITALS: BP 117/91
== END 2018-09-23 15:26 | disposition home or self-care (01) | DRG 690 ==
LOC: ER 14:52 → EH 23:35 → 4S 09-20 02:40
PROVIDERS: ADMIT Emergency Medicine; ATTEND Emergency Medicine
DX: N10 Acute pyelonephritis (principal); I50.22 Chronic systolic (congestive) heart failure; E87.1 Hypo-osmolality and hyponatremia; E78.5 Hyperlipidemia, unspecified; I11.0 Hypertensive heart disease with heart failure; E03.9 Hypothyroidism, unspecified; M19.90 Unspecified osteoarthritis, unspecified site; Z88.0 Allergy status to penicillin; F17.210 Nicotine dependence, cigarettes, uncomplicated; I48.2 Chronic atrial fibrillation; F10.10 Alcohol abuse, uncomplicated
CPT/HCPCS: 36415; 71046; 74176; 76705; 80048; 80053; 80307; 81001; 83605; 83690; 83735; 85025; 87040; 87086; 87491; 87591; 96361; 96365; 96375; 96376; 99285; J0696; J1170; J1940; J2270; J2405; J3010; J3490; J7030; J7060; J7120